=== PATIENT | male | born 1970 | race Caucasian/White ===

== ENCOUNTER 2021-10-15 07:37 | Outpatient (CLI) | payer OTHER, SELFPAY ==
--- NOTE | 2021-10-23 12:34 | WPDHOMESLEEP ---
Sleep Study - Home Unattended Date of Study: 10/15/21 Ordering Provider: Uma Sanchez DO Interpreting Provider: Uma Sanchez DO Home Sleep Study Type: Watch PAT Height: 1.85 m Weight: 136.985 kg Body Mass Index: 39.8 Neck Circumference (inches): 19 [place]: 12 Reason for Sleep Study Unrefreshing sleep and daytime sleepiness Sleep History The patient is a 50-year-old male with hypertension and GERD that had a home sleep test ordered for evaluation of sleep apnea. The patient rarely awakens from sleep short of breath. He occasionally awakens at night with heartburn, belching or cough. He frequently snores loud enough that others complain. He rarely has trouble sleeping poorly has a cold. He denies waking up gasping for air throughout the night. He denies having breathing problems at night observed by himself or others. He occasionally sweats excessively at night. He denies heart palpitations or irregular heartbeats during the night. He frequently falls asleep during the day but never while driving. He denies sleep paralysis and cataplexy. He occasionally has trouble at work due to sleepiness. He occasionally has vivid dreamlike scenes upon awakening or falling asleep. He denies feeling afraid of going to sleep. He denies having nightmares. Rarely remembers his dreams. He denies having thoughts racing through his mind. He rarely feels sad, depressed or anxious. He denies having muscular tension. He rarely notices parts of his body jerk. He denies kicking during the night. He denies having crawling and aching feelings in his legs as well as leg pain during the night. He rarely grinds his teeth during sleep but never awakens with a morning type pain. He denies being bothered by pain during the day but occasionally is awakened by pain during the night. He occasionally wakes up feeling stiff in the morning with sore or achy muscles. He occasionally wakes up with pain in the neck, spine or other joints. He goes to bed at 10:00 p.m. on weekdays and 11:00 p.m. on weekends. He is able to fall asleep relatively quickly. He wakes up 3-4 times throughout the night for unknown reasons. It takes him 20 minutes to fall back asleep. He wakes up at 6:00 a.m. on weekdays and 7:00 a.m. on the weekends. He typically gets 6-7 hours of sleep per night. He will stay in bed for 15 minutes after waking up in the morning. He currently lives with his . He does not consume any caffeinated beverages within 2 hours of bedtime. He is not engage in physical exercise before bedtime. He will watch television before falling asleep. He does not take naps in the afternoon or the evening. He drinks 4-5 caffeinated beverages per day. He denies tobacco, alcohol and recreational drug use. [facility] Past Medical History Medical History Bone spur of ankle Hypertension Joint pain Mild acid reflux Trigeminal neuralgia Surgical History Surgical History H/O elbow surgery Right tennis elbow surgery 08/2015 H/O knee surgery Right ACL 2018 History of ankle surgery Family History Family History Grandparent Family history of transient ischemic attacks Diabetes mellitus Father Hypertension Heart disease BPH (benign prostatic hyperplasia) Social History Social History Smoking status: Never smoker Alcohol intake: never Substance use: never Medications Home Medications Medication Instructions Recorded Confirmed Type ibuprofen 400 mg tablet 400 mg PO Q4-6H tablet 05/19/19 09/23/21 History omeprazole 20 mg capsule,delayed 20 mg PO DAILY PRN 05/19/19 09/23/21 History release losartan 50 mg tablet 50 mg PO DAILY #90 tablet 09/19/21 09/23/21 Rx Sleep Procedure The sleep study was com
[2021-10-23 12:52] VITALS: BMI 39.8
== END 2021-10-16 11:32 | disposition home or self-care (01) ==
LOC: ANHCSM 07:38
PROVIDERS: PCP Internal Medicine; Visit Provider Family Medicine
DX: G47.33 Obstructive sleep apnea (adult) (pediatric) (principal)
CPT/HCPCS: 95800

== ENCOUNTER 2021-11-07 08:07 | Outpatient (CLI) | payer OTHER, SELFPAY ==
--- NOTE | 2021-11-12 19:40 | WPDSLEEPSTUD ---
Sleep Study Date of Study: 11/07/21 Ordering Provider: Uma Sanchez DO Interpreting Physician: Madeleine Lopez MD Sleep Study Type: CPAP Titration Height: 1.83 m Weight: 137.346 kg Body Mass Index: 41.1 Neck Circumference (inches): 20 [place]: 12 Reason for Sleep Study 10/15/2021 Home sleep test with an overall AHI of 12.1 with desaturation down to 79%. The patient had 18 central apneas resulting in a central apnea index of 2.6. He presents for a CPAP titration. Sleep History Rajiv Kimball is a 50 year old man with hypertension and GERD who had a home sleep test for hypersomnolence. He rarely awakens from sleep short of breath. He occasionally awakens at night with heartburn, belching or coughing. He frequently snores loudly enough that others complain. He rarely has trouble sleeping with has a cold. He denies waking up gasping for air throughout the night. He denies having breathing problems at night observed by himself or others. He occasionally sweats excessively at night. He denies heart palpitations or irregular heartbeats during the night. He frequently falls asleep during the day but never while driving. He denies sleep paralysis and cataplexy. He occasionally has trouble at work due to sleepiness. He occasionally has vivid dreamlike scenes upon awakening or falling asleep. He denies feeling afraid of going to sleep. He denies having nightmares. Rarely remembers his dreams. He denies having thoughts racing through his mind. He rarely feels sad, depressed or anxious. He denies having muscular tension. He rarely notices parts of his body jerk. He denies kicking during the night. He denies having crawling and aching feelings in his legs as well as leg pain during the night. He rarely grinds his teeth during sleep but never awakens with a morning type pain. He denies being bothered by pain during the day but occasionally is awakened by pain during the night. He occasionally wakes up feeling stiff in the morning with sore or achy muscles. He occasionally wakes up with pain in the neck, spine or other joints. He goes to bed at 10:00 p.m. on weekdays and 11:00 p.m. on weekends. He is able to fall asleep relatively quickly. He wakes up 3-4 times throughout the night for unknown reasons. It takes him 20 minutes to fall back asleep. He wakes up at 6:00 a.m. on weekdays and 7:00 a.m. on the weekends. He typically gets 6-7 hours of sleep per night. He will stay in bed for 15 minutes after waking up in the morning. He currently lives with his . He does not take naps in the afternoon or the evening. Habits: He drinks 4-5 caffeinated beverages per day. He denies tobacco, alcohol and recreational drug use. [facility] Past Medical History Medical History (Updated 11/12/21 @ 19:45 by Madeleine Lopez MD) Bone spur of ankle Hypertension Joint pain Mild acid reflux DANII (obstructive sleep apnea) Trigeminal neuralgia Surgical History Surgical History H/O elbow surgery Right tennis elbow surgery 08/2015 H/O knee surgery Right ACL 2018 History of ankle surgery Family History Family History Grandparent Family history of transient ischemic attacks Diabetes mellitus Father Hypertension Heart disease BPH (benign prostatic hyperplasia) Social History Social History Smoking status: Never smoker Alcohol intake: never Substance use: never Medications Home Medications Medication Instructions Recorded Confirmed Type ibuprofen 400 mg tablet 400 mg PO Q4-6H tablet 05/19/19 10/28/21 History omeprazole 20 mg capsule,delayed 20 mg PO DAILY PRN 05/19/19 10/28/21 History release fenofibrate nanocrystallized 145 145 mg PO DAILY #90 tablet 10/28/21 10/28/21 Rx mg tablet losartan 100 mg tablet 100 mg PO DAILY #90 tablet 10/28
[2021-11-12 20:07] VITALS: BMI 41.1
== END 2021-11-08 07:03 | disposition home or self-care (01) ==
LOC: ANHCSM 08:08
PROVIDERS: PCP Internal Medicine; Visit Provider Family Medicine
DX: G47.33 Obstructive sleep apnea (adult) (pediatric) (principal)
CPT/HCPCS: 95811

== ENCOUNTER → 2022-11-07 08:37 | Outpatient (CLI) | payer OTHER, SELFPAY ==
--- NOTE | ~2022-11-07 | XR_ITS ---
Lumbosacral Spine: AP and lateral views Clinical History: Pain COMPARISON: 08/12/2017 Findings: The normal lordotic curve is maintained. No fracture or subluxation evident. Extensive ante rior osteophytes are present. There is mild facet arthropathy from L3 through S1. The sacroiliac join ts are normally outlined. Impression: Mild degenerative spondylosis, as above. Reviewed, dictated and finalized at location M. Impression: Mild degenerative spondylosis, as above.
== END ==
PROVIDERS: PCP Internal Medicine; Visit Provider Nurse Practitioner
DX: M54.50 Low back pain, unspecified (principal)
CPT/HCPCS: 72100

== ENCOUNTER 2023-03-08 17:45 | Emergency (ER) | payer OTHER, SELFPAY ==
--- NOTE | ~2023-03-08 | XR_ITS ---
Left wrist Technique: PA, oblique, lateral, and ulnar deviation views were obtained. Clinical History: Puncture injury Findings: No acute fracture or dislocation is seen. Osseous alignment is anatomic. Joint spaces are p reserved. Soft tissues are unremarkable. Impression: Unremarkable left wrist radiographs. Reviewed, dictated and finalized at location . Impression: Unremarkable left wrist radiographs.
[2023-03-08 17:51] VITALS: BP 144/84; PULSE 82; RESP 16; TEMP 36.8; O2SAT 97
--- NOTE | 2023-03-08 18:05 | ED.UPPEXIN ---
HPI - Extremity Injury (Upper) General Chief Complaint: Extremity Injury, Upper Stated Complaint: Puncture Wound/Left Wrist History of Present Illness HPI narrative: patient presents with puncture wound to left wrist. patient states he was using a drill at home and his hand slipped causing the drill bit to go into his wrist. Patient states he pulled the bit out but is unsure of whether or not he got all of the drill bit out of his wrist. patient is not up to date on tetanus no bleeding present no numbness or tingling. Related Data Home Medications Medication Instructions Recorded Confirmed meloxicam 15 mg tablet 15 mg PO DAILY 12/24/22 03/08/23 Allergies Allergy/AdvReac Type Severity Reaction Status Date / Time No Known Drug Allergies Allergy Unknown Verified 03/08/23 17:54 Review of Systems Review of Systems: CONSTITUTIONAL: Denies fever, chills, or sweats. EYES: Denies visual changes, redness, or discharge. ENT: Denies rhinorrhea, congestion, sore throat, or otalgia. CARDIOVASCULAR: Denies chest pain, palpitations, or edema. RESPIRATORY: Denies cough or dyspnea. GASTROINTESTINAL: Denies abdominal pain, nausea, vomiting, or diarrhea. GENITOURINARY: Denies dysuria or hematuria. SKIN: Denies rash or itching. MUSCULOSKELETAL: Denies back pain, joint pain, or myalgia. NEUROLOGIC: Denies headache, numbness, or weakness. PSYCHIATRIC: Denies anxiety or depression. [facility] Past Medical History Medical History Bone spur of ankle Hypertension Joint pain Mild acid reflux DANII (obstructive sleep apnea) Trigeminal neuralgia Surgical History Surgical History H/O elbow surgery Right tennis elbow surgery 08/2015 H/O knee surgery Right ACL 2018 History of ankle surgery Family History Family History Grandparent Family history of transient ischemic attacks Diabetes mellitus Father Hypertension Heart disease BPH (benign prostatic hyperplasia) Social History Social History Smoking status: Never smoker Alcohol intake: never Substance use: never Lack of Transportation: No Lack of Food: Never True Current Housing: I Have Housing Concerned About Future Housing: No Difficulty Paying Gas/Electric Bills: No Difficulty Paying for Meds: No Currently Unemployed: No Education: Bachelor's Degree Difficulty w/ Childcare or Family Care: No Comments At time of signature, agree with nursing past medical, surgical, social and family history. There is no relevant family history pertinent to the presenting complaint Exam Narrative: GENERAL: Well-appearing, well-nourished, and in no acute distress. HEAD: Normocephalic, atraumatic. EYES: PERRLA and EOMI. ENT: Nares clear, no rhinorrhea or epistaxis. Mucous membranes moist. NECK: Supple. CHEST: Clear to auscultation. No respiratory distress. HEART: Regular rate and rhythm. No murmur heard. Normal peripheral pulses. ABDOMEN: Soft, nontender, nondistended, normal active bowel sounds. EXTREMITIES: Normal range of motion. No edema. HAND EXAM - Skin intact,puncture wound to base of rleft thumb, no laceration, no swelling, no erythema, normal digit cascade with flexion of fingers, median nerve, ulnar nerve, radial nerve is intact. Normal sensation of each side of each finger, can perform `ok? sign, `cross over finger test of index and middle fingers? and `thumbs up? sign, normal thumb opposition, no scissoring. good capillary refill and radial pulse. normal flexion and extension of fingers and wrist. normal supination at wrist. Normal forearm and elbow exam. SKIN: Warm, dry, no rash. NEURO: No focal deficits. Alert and oriented x3. [place] Coma Scale Eye Opening: Spontaneous 4 [place] Coma Scale Motor: Obeys Commands 6 [place] Coma Scale V
[2023-03-08] MEDS: TETANUS,DIPHTHERIA,AC PERTUSSIS ADULT (0.5 ML) BOOSTRIX IM (18:22)
== END 2023-03-08 18:43 | disposition home or self-care (01) ==
PROVIDERS: Emergency Provider Nurse Practitioner Family; PCP Internal Medicine
DX: S61.532A Puncture wound without foreign body of left wrist, initial encounter (principal); W29.8XXA Contact with other powered hand tools and household machinery, initial encounter; Z23 Encounter for immunization; I10 Essential (primary) hypertension; K21.9 Gastro-esophageal reflux disease without esophagitis
CPT/HCPCS: 73110; 90471; 90715; 99213; G0463

== ENCOUNTER 2023-04-07 08:02 | Emergency (ER) | payer OTHER, SELFPAY ==
--- NOTE | 2023-04-07 08:13 | ED.GENADULT ---
HPI - General Adult General Chief complaint: Wound/Laceration Stated complaint: PUNCTURE WOUND TO L WRIST Time Seen by Provider: 04/07/23 08:14 Source: patient, RN notes reviewed and old records reviewed Mode of arrival: ambulatory Limitations: no limitations History of Present Illness HPI narrative: 52-year-old male presents to the [facility] concerned of a puncture wound that occurred 1 month ago to the left wrist. States that he had a puncture wound with a screw 1 month ago. Did seek treatment at time, no neuro deficits noted. Was started on Bactrim. Has not followed up with his primary care provider. States he has been to other urgent cares was told to go the ER. Came here today for treatment. Full range of motion of the fingers. Sensation intact. Capillary refill under 2 seconds. Wound noted to the volar aspect right over the radial wrist. Patient reports there has been purulent drainage from the area Onset (ago): month(s) (1) Treatments prior to arrival: other (Antibiotics, salves) Related Data Home Medications Medication Instructions Recorded Confirmed meloxicam 15 mg tablet 15 mg PO DAILY 12/24/22 04/07/23 Allergies Allergy/AdvReac Type Severity Reaction Status Date / Time No Known Drug Allergies Allergy Unknown Verified 04/07/23 08:22 Review of Systems Review of Systems: All systems reviewed & are unremarkable except as noted in HPI and below Constitutional: Constitutional: Reports no additional constitutional complaints Eyes: Eyes: Reports no additional eye complaints ENT: Reports system reviewed and no additional complaints, except as documented Cardiovascular: Cardiovascular: Reports no additional cardiovascular complaints, Denies chest pain and Denies dyspnea Respiratory: Respiratory: Reports no additional respiratory complaints, Denies chest congestion, Denies cough and Denies dyspnea Gastrointestinal: Gastrointestinal: Reports no additional gastrointestinal complaints, Denies abdominal pain, Denies nausea and Denies vomiting Musculoskeletal: Musculoskeletal: Reports as per HPI Integumentary/Breasts: Skin/Breast: Reports as per HPI, Reports skin swelling and Reports other (Nonhealing wound) Neurologic: Reports system reviewed and no additional complaints, except as documented Psychiatric: Psychiatric: Reports no additional psychiatric complaints Allergic/Immunologic: Allergic/Immunologic: Reports no additional allergic/immunologic complaints PMFSH Past Medical History Medical History Bone spur of ankle Hypertension Joint pain Mild acid reflux DANII (obstructive sleep apnea) Trigeminal neuralgia Surgical History Surgical History H/O elbow surgery Right tennis elbow surgery 08/2015 H/O knee surgery Right ACL 2018 History of ankle surgery Family History Family History Grandparent Family history of transient ischemic attacks Diabetes mellitus Father Hypertension Heart disease BPH (benign prostatic hyperplasia) Social History Social History Smoking status: Never smoker Alcohol intake: never Substance use: never Lack of Transportation: No Lack of Food: Never True Current Housing: I Have Housing Concerned About Future Housing: No Difficulty Paying Gas/Electric Bills: No Difficulty Paying for Meds: No Currently Unemployed: No Education: Bachelor's Degree Difficulty w/ Childcare or Family Care: No Comments At the time of my signature, I reviewed and agree with the nursing past medical, surgical, social, and family history. There is no relevant family history pertinent to the patient complaint. Exam Const: General: cooperative, healthy appearing, comfortable, no acute distress, well developed, alert and well nourished Nutritional
[2023-04-07 08:16] VITALS: BP 144/82; PULSE 76; RESP 16; TEMP 36.4; O2SAT 97
== END 2023-04-07 08:27 | disposition short-term general hospital (02) ==
PROVIDERS: Emergency Provider Nurse Practitioner; PCP Nurse Practitioner
DX: S61.532A Puncture wound without foreign body of left wrist, initial encounter (principal); L08.9 Local infection of the skin and subcutaneous tissue, unspecified; W45.0XXA Nail entering through skin, initial encounter; I10 Essential (primary) hypertension
CPT/HCPCS: 99212; G0463

== ENCOUNTER 2023-04-07 08:45 | Emergency (ER) | payer OTHER, SELFPAY ==
--- NOTE | ~2023-04-07 | XR_ITS ---
Left wrist Technique: PA, oblique, lateral, and ulnar deviation views were obtained. Clinical History: Puncture wound Findings: No acute fracture or dislocation is seen. Osseous alignment is anatomic. Joint spaces are p reserved. Soft tissues are unremarkable. Impression: Unremarkable left wrist radiographs. Reviewed, dictated and finalized at location . Impression: Unremarkable left wrist radiographs.
[2023-04-07 08:59] VITALS: BP 166/95; PULSE 69; RESP 16; TEMP 36.6; O2SAT 98
--- NOTE | 2023-04-07 09:28 | ED.WOUNDLAC ---
HPI - Wound/Laceration General Chief Complaint: Wound/Laceration <TOMA Rae Last Filed: 04/07/23 16:36> Stated Complaint: wrist wound <TOMA Rae Last Filed: 04/07/23 16:36> Time Seen by Provider: 04/07/23 08:59 <TOMA Rae Last Filed: 04/07/23 16:36> Source: patient and old records reviewed <TOMA Rae Last Filed: 04/07/23 16:36> Mode of arrival: ambulatory <TOMA Rae Last Filed: 04/07/23 16:36> Limitations: no limitations <TOMA Rae Filed: 04/07/23 16:36> History of Present Illness HPI narrative: Patient is a 52 y/o male who presents to the ED with c/o L wrist wound. Patient reports that he sustained a puncture wound from a screw to his left volar wrist around 1 month ago. He was seen in urgent care at that time and had negative x-rays for foreign bodies. He was prescribed a 7-day course of Bactrim at that time. Patient states the wound intermittently improved and worsened over the last month. Over the last 1 week, patient reports increased redness, serous drainage, intermittent discomfort. He has been using antibiotic ointment without improvement. He was unable to get into his primary care doctor, so he prompted here. He denies any fevers or chills. Denies numbness or tingling. Denies nausea or vomiting. <TOMA Rae Last Filed: 04/07/23 16:36> Related Data Home Medications: Home Medications Medication Instructions Recorded Confirmed meloxicam 15 mg tablet 15 mg PO DAILY 12/24/22 04/07/23 <TOMA Rae Last Filed: 04/07/23 16:36> Allergies/Adverse Reactions: Allergies Allergy/AdvReac Type Severity Reaction Status Date / Time No Known Drug Allergies Allergy Unknown Verified 04/07/23 08:22 <SNEHA RaeC - Last Filed: 04/07/23 16:36> Review of Systems Review of Systems: CONSTITUTIONAL: Denies fever, chills, or sweats. CARDIOVASCULAR: Denies chest pain. RESPIRATORY: Denies dyspnea. GASTROINTESTINAL: Denies nausea, vomiting. SKIN: See HPI. MUSCULOSKELETAL: See HPI. NEUROLOGIC: Denies tingling, numbness, or weakness. <Lelia Dominguez PA-C - Last Filed: 04/07/23 16:36> All systems reviewed & are unremarkable except as noted in HPI and below <Lelia Dominguez PA-C - Last Filed: 04/07/23 16:36> [facility] Past Medical History Medical History: Medical History Bone spur of ankle Hypertension Joint pain Mild acid reflux DANII (obstructive sleep apnea) Trigeminal neuralgia <Lelia Dominguez PA-C - Last Filed: 04/07/23 16:36> Surgical History Surgical History: Surgical History H/O elbow surgery Right tennis elbow surgery 08/2015 H/O knee surgery Right ACL 2018 History of ankle surgery <Lelia Dominguez PA-C - Last Filed: 04/07/23 16:36> Family History Family History: Family History Grandparent Family history of transient ischemic attacks Diabetes mellitus Father Hypertension Heart disease BPH (benign prostatic hyperplasia) <Lelia Dominguez PA-C - Last Filed: 04/07/23 16:36> Social History Social History: Social History Smoking status: Never smoker Alcohol intake: never Substance use: never Lack of Transportation: No Lack of Food: Never True Current Housing: I Have Housing Concerned About Future Housing: No Difficulty Paying Gas/Electric Bills: No Difficulty Paying for Meds: No Currently Unemployed: No Education: Bachelor's Degree Difficulty w/ Childcare or Family Care: No <Lelia Dominguez PA-C - Last Filed: 04/07/23 16:36> Exam Narrative: GENERAL: Well
[2023-04-07 10:00] LABS: Basophils Absolute Auto 0.1 K/mm3 (0.0-0.1); Eosinophils Absolute Auto 0.2 K/mm3 (0-0.3); Eosinophils Percent Auto 3.4 % (0-4.4); Hematocrit 43.3 % (42.0-52.0); Immature Granulocyte Absolute 0.03 K/mm3 (0.00-0.031); Immature Granulocyte Percent A 0.5 % (0-0.5); Lymphocytes Absolute Auto 1.27 K/mm3 (0.9-3.2); Lymphocytes Percent Auto 20.6 % (18.3-44.2); Mean Corpuscular HGB Conc 34.6 g/dl (32-36); Mean Corpuscular Hemoglobin 30.6 pg (26-34); Mean Corpuscular Volume 88.4 fl (80-100); Mean Platelet Volume 9.4 fl (7.4-10.4); Monocytes Absolute Auto 0.5 K/mm3 (0.1-0.6); Monocytes Percent Auto 8.6 % (2.6-8.5); Neutrophils Absolute Auto 4.1 K/mm3 (1.3-6.7); Neutrophils Percent Auto 65.9 % (45.5-73.1); Platelet Count Result 192 k/mm3 (150-375); White Blood Count 6.2 K/mm3 (4.5-10.0)
[2023-04-07 10:11] LABS: CRP < 0.5 mg/dL (<1.0)
== END 2023-04-07 10:53 | disposition home or self-care (01) ==
PROVIDERS: Emergency Provider Physician Assistant; PCP Nurse Practitioner
DX: S61.532A Puncture wound without foreign body of left wrist, initial encounter (principal); L24.9 Irritant contact dermatitis, unspecified cause; I10 Essential (primary) hypertension; K21.9 Gastro-esophageal reflux disease without esophagitis; G47.33 Obstructive sleep apnea (adult) (pediatric); W27.0XXA Contact with workbench tool, initial encounter
CPT/HCPCS: 36415; 73110; 85025; 86140; 99283

== ENCOUNTER 2024-03-06 15:46 | Emergency (ER) | payer OTHER, SELFPAY ==
--- NOTE | 2024-03-06 15:47 | ECG_ITS ---
Test Date: 2024-03-06 15:52:54 Measurements Intervals [place] Rate: 77 P: 42 MS: 186 QRS: 30 QRSD: 103 T: 22 QT: 364 QTc: 414 Interpretive Statements SINUS RHYTHM DELAYED PRECORDIAL R/S TRANSITION BORDERLINE ECG No previous ECG available for comparison Electronically Signed On 03-06-2024 20:08:07 CDT by aMtt Langley D.O.
[2024-03-06 16:06] VITALS: BP 170/82; PULSE 82; RESP 16; TEMP 36.3; O2SAT 96
[2024-03-06 18:44] VITALS: BP 128/72; PULSE 69; RESP 18; TEMP 36.7; O2SAT 97
[2024-03-06 19:01] VITALS: BP 129/66; PULSE 67; RESP 34; O2SAT 97
[2024-03-06 19:03] VITALS: RESP 19; O2SAT 99
[2024-03-06 19:16] VITALS: BP 118/66; PULSE 70; RESP 20; O2SAT 97
[2024-03-06 19:31] VITALS: BP 125/68; PULSE 68; RESP 13; O2SAT 98
--- NOTE | 2024-03-06 19:51 | ED.GENADULT ---
HPI - General Adult General Chief complaint: Recheck/Abnormal Lab/Rx Stated complaint: HTN Time Seen by Provider: 03/06/24 18:54 History of Present Illness HPI narrative: This is a 53-year-old male presenting with complaints of hypertension. Patient has recently been treated for chronic hypertension. He has been taking his blood pressures multiple times per day. Today was elevated at 173/102. He was then told to go to the emergency room for evaluation. Patient is currently asymptomatic. Blood pressure returned to normal in the ED. patient felt anxious and jittery when he had the elevated blood pressures Related Data Allergies Allergy/AdvReac Type Severity Reaction Status Date / Time No Known Drug Allergies Allergy Unknown Verified 03/06/24 19:05 [facility] Past Medical History Medical History Bone spur of ankle Chronic eustachian tube dysfunction Chronic seasonal allergic rhinitis Hypertension Joint pain Mild acid reflux DANII (obstructive sleep apnea) Otitis externa, acute eczematoid Right ankle sprain Trigeminal neuralgia Surgical History Surgical History H/O elbow surgery Right tennis elbow surgery 08/2015 H/O knee surgery Right ACL 2018 History of ankle surgery Family History Family History Grandparent Family history of transient ischemic attacks Diabetes mellitus Father Hypertension Heart disease BPH (benign prostatic hyperplasia) Social History Social History Smoking status: Never smoker Alcohol intake: never Substance use: never Substance use type: does not use Lack of Transportation: No Lack of Food: Never True Current Housing: I Have Housing Concerned About Future Housing: No Difficulty Paying Gas/Electric Bills: No Difficulty Paying for Meds: No Currently Unemployed: No Education: Bachelor's Degree Difficulty w/ Childcare or Family Care: No Living arrangements: with family Spiritual care concerns: No Exam Narrative: APPEARANCE: No apparent distress. Head: atraumatic. EYES: EOMI, NOSE: Atraumatic NECK: Trachea midline RESPIRATORY: No increased rate of breathing CTAB CARDIOVASCULAR: RRR peripheral edema ABDOMINAL: Non-distended Soft nontender MUSCULOSKELETAl: No obvious deformities NEURO: Alert. Cranial nerves 2-12 grossly intact. Sensation light touch, motor function cerebellar function intact for 4 extremities. Gait exam was normal. SKIN:: Warm, dry. Normal color PSYCHIATRIC: Normal affect Course Vital Signs Vital signs: Vital Signs Temperature 97.4 F L 03/06/24 16:06 Pulse Rate 82 03/06/24 16:06 Respiratory Rate 16 03/06/24 16:06 Blood Pressure 170/82 H 03/06/24 16:06 Pulse Oximetry 96 03/06/24 16:06 Temperature 98.0 F 03/06/24 18:44 Pulse Rate 69 03/06/24 18:44 Respiratory Rate 19 03/06/24 19:03 Blood Pressure 128/72 03/06/24 18:44 Pulse Oximetry 99 03/06/24 19:03 Medical Decision Making MDM Narrative Medical decision making narrative: -Course: 53-year-old male presenting asymptomatic hypertension. Blood pressure returned to normal in the ED. Patient educated point to the emergency for hypertension. Patient should follow-up primary care physician Vital Signs Vital Signs: Vital Signs Temperature 97.4 F L 03/06/24 16:06 Pulse Rate 82 03/06/24 16:06 Respiratory Rate 16 03/06/24 16:06 Blood Pressure 170/82 H 03/06/24 16:06 Pulse Oximetry 96 03/06/24 16:06 Temperature 98.0 F 03/06/24 18:44 Pulse Rate 69 03/06/24 18:44 Respiratory Rate 19 03/06/24 19:03 Blood Pressure 128/72 03/06/24 18:44 Pulse Oximetry 99 03/06/24 19:03 Discharge Plan Discharge Clinical Impression: Asymptomatic hypertension Patient Disposit
== END 2024-03-06 20:01 | disposition home or self-care (01) ==
PROVIDERS: Emergency Provider Emergency Medicine; PCP Internal Medicine
DX: I10 Essential (primary) hypertension (principal); G47.30 Sleep apnea, unspecified
CPT/HCPCS: 93005; 99283

== ENCOUNTER 2025-05-22 00:13 | Day surgery (SDC) | payer OTHER, SELFPAY ==
--- OUTSIDE RECORDS SUMMARY | 2010-05-20 10:00 | XMS_ITS | Continuity of Care Document ---
Author Organization [facility] Address [address] [place] [address] Phone Care Team Providers Care Retail Administrative Assistant Name Role Phone [facility] Unavailable Unavailable Procedures Procedure Date MRI lwr extrm joint, w/o contrast Office/outpatient visit,[facility] 2009 X-ray exam of knee, 3 views Advance Directives Directive Yes / No Effective Date File Name No Information Encounters Encounter Description Practice Location Reason(s) For Visit Diagnoses Date Provider Providers Copied on Encounter [facility], [address], [id number], tel:[phone] [facility] CHONDROMALACIA PATELLAEJOINT EFFUSION-L/LEG 0 [facility]. [address] [place] [address], [address], [place], [place], [id number], . tel:[phone] Office/outpa tient visit,[facility], [address] [place] [address], [id number], tel:[phone] [facility] JOINT PAIN-L/LEG 0 No Information Family History Family Member Type Diagnosis Age At Onset No Information Payers Payer name Insurance type Covered constitution party ID Authoriza titeddy(s) [facility] [id number] Social History Type Description Quantity Date Captured Comments Sex Male Smoking Status No Information Chief Complaint And Reason For Visit No Information Reason For Referral Reason For Referral No Information History Of Present Illness Encounter Date Complaint History Of Prese nt Illness No Information Functional Status Date Functional Assessmen t No Information Instructions Date Instruction Additional Infor mation No Information Assessments Type Assessment Date No Information Patient Care Teams Name Effective Dates (start - stop) Status Members No Information
--- OUTSIDE RECORDS SUMMARY | 2010-05-20 10:00 | XMS_ITS | Continuity of Care Document ---
Author Organization [facility] Address [address] [place] [address] Phone Care Team Providers Care Machining Technician Name Role Phone [facility] Unavailable Unavailable Procedures Procedure Date MRI lwr extrm joint, w/o contrast Office/outpatient visit,[facility] 2009 X-ray exam of knee, 3 views Advance Directives Directive Yes / No Effective Date File Name No Information Encounters Encounter Description Practice Location Reason(s) For Visit Diagnoses Date Provider Providers Copied on Encounter [facility], [address], [id number], tel:[phone] [facility] CHONDROMALACIA PATELLAEJOINT EFFUSION-L/LEG 0 [facility]. [address] [place] [address], [address], [place], [place], [id number], . tel:[phone] Office/outpa tient visit,[facility], [address] [place] [address], [id number], tel:[phone] [facility] JOINT PAIN-L/LEG 0 No Information Family History Family Member Type Diagnosis Age At Onset No Information Payers Payer name Insurance type Covered green party ID Authoriza titeddy(s) [facility] [id number] Social History Type Description Quantity Date Captured [...]
--- OUTSIDE RECORDS SUMMARY | 2010-05-20 10:00 | XMS_ITS | Continuity of Care Document ---
Author Organization [facility] Address [address] [place] [address] Phone Care Team Providers Care Front Tender Name Role Phone [facility] Unavailable Unavailable Procedures Procedure Date MRI lwr extrm joint, w/o contrast Office/outpatient visit,[facility] 2009 X-ray exam of knee, 3 views Advance Directives Directive Yes / No Effective Date File Name No Information Encounters Encounter Description Practice Location Reason(s) For Visit Diagnoses Date Provider Providers Copied on Encounter Orthopedic [facility], [address], [id number], tel:[phone] [facility] CHONDROMALACIA PATELLAEJOINT EFFUSION-L/LEG 0 [facility]. [address] [place] [address], [address], [place], [place], [id number], . tel:[phone] Office/outpa tient visit,[facility], [address] [place] [address], [id number], tel:[phone] [facility] JOINT PAIN-L/LEG 0 No Information Family History Family Member Type Diagnosis Age At Onset No Information Payers Payer name Insurance type Covered constitution party ID Authoriza titeddy(s) [facility] [id number] Social History Type Description Quantity Date Captured [...]
--- OUTSIDE RECORDS SUMMARY | 2010-05-20 10:00 | XMS_ITS | Continuity of Care Document ---
Author Organization [facility] Address [address] [place] [address] Phone Care Team Providers Care Director Pediatric Name Role Phone [facility] Unavailable Unavailable Procedures Procedure Date MRI lwr extrm joint, w/o contrast Office/outpatient visit,[facility] 2009 X-ray exam of knee, 3 views Advance Directives Directive Yes / No Effective Date File Name No Information Encounters Encounter Description Practice Location Reason(s) For Visit Diagnoses Date Provider Providers Copied on Encounter Orthopedic [facility], [address], [id number], tel:[phone] [facility] CHONDROMALACIA PATELLAEJOINT EFFUSION-L/LEG 0 [facility]. [address] [place] [address], [address], [place], [place], [id number], . tel:[phone] Office/outpa tient visit,[facility], [address] [place] [address], [id number], tel:[phone] [facility] JOINT PAIN-L/LEG 0 No Information Family History Family Member Type Diagnosis Age At Onset No Information Payers Payer name Insurance type Covered constitution party ID Authoriza titeddy(s) [facility] [id number] Social History Type Description Quantity Date Captured [...]
--- OUTSIDE RECORDS SUMMARY | 2010-05-20 10:00 | XMS_ITS | Continuity of Care Document ---
Author Organization [facility] Address [address] [place] [address] Phone Care Team Providers Care School Guard Name Role Phone [facility] Unavailable Unavailable Procedures Procedure Date MRI lwr extrm joint, w/o contrast Office/outpatient visit,[facility] 2009 X-ray exam of knee, 3 views Advance Directives Directive Yes / No Effective Date File Name No Information Encounters Encounter Description Practice Location Reason(s) For Visit Diagnoses Date Provider Providers Copied on Encounter Orthopedic [facility], [address], [id number], tel:[phone] [facility] CHONDROMALACIA PATELLAEJOINT EFFUSION-L/LEG 0 [facility]. [address] [place] [address], [address], [place], [place], [id number], . tel:[phone] Office/outpa tient visit,[facility], [address] [place] [address], [id number], tel:[phone] [facility] JOINT PAIN-L/LEG 0 No Information Family History Family Member Type Diagnosis Age At Onset No Information Payers Payer name Insurance type Covered democrat ID Authoriza titeddy(s) [facility] [id number] Social History Type Description Quantity Date Captured [...]
--- OUTSIDE RECORDS SUMMARY | 2010-05-20 10:00 | XMS_ITS | Continuity of Care Document ---
Author Organization [facility] Address [address] [place] [address] Phone Care Team Providers Care Binder Cutter Hand Name Role Phone [facility] Unavailable Unavailable Procedures Procedure Date MRI lwr extrm joint, w/o contrast Office/outpatient visit,[facility] 2009 X-ray exam of knee, 3 views Advance Directives Directive Yes / No Effective Date File Name No Information Encounters Encounter Description Practice Location Reason(s) For Visit Diagnoses Date Provider Providers Copied on Encounter Orthopedic [facility], [address], [id number], tel:[phone] [facility] CHONDROMALACIA PATELLAEJOINT EFFUSION-L/LEG 0 [facility]. [address] [place] [address], [address], [place], [place], [id number], . tel:[phone] Office/outpa tient visit,[facility], [address] [place] [address], [id number], tel:[phone] [facility] JOINT PAIN-L/LEG 0 No Information Family History Family Member Type Diagnosis Age At Onset No Information Payers Payer name Insurance type Covered alliance party ID Authoriza titeddy(s) [facility] [id number] Social History Type Description Quantity Date Captured [...]
--- OUTSIDE RECORDS SUMMARY | 2010-05-20 10:00 | XMS_ITS | Continuity of Care Document ---
Author Organization [facility] Address [address] [place] [address] Phone Care Team Providers Care Support Team Assoc Name Role Phone [facility] Unavailable Unavailable Procedures Procedure Date MRI lwr extrm joint, w/o contrast Office/outpatient visit,[facility] 2009 X-ray exam of knee, 3 views Advance Directives Directive Yes / No Effective Date File Name No Information Encounters Encounter Description Practice Location Reason(s) For Visit Diagnoses Date Provider Providers Copied on Encounter Orthopedic [facility], [address], [id number], tel:[phone] [facility] CHONDROMALACIA PATELLAEJOINT EFFUSION-L/LEG 0 [facility]. [address] [place] [address], [address], [place], [place], [id number], . tel:[phone] Office/outpa tient visit,[facility], [address] [place] [address], [id number], tel:[phone] [facility] JOINT PAIN-L/LEG 0 No Information Family History Family Member Type Diagnosis Age At Onset No Information Payers Payer name Insurance type Covered green party ID Authoriza titeddy(s) [facility] [id number] Social History Type Description Quantity Date Captured [...]
--- OUTSIDE RECORDS SUMMARY | 2010-05-20 10:00 | XMS_ITS | Continuity of Care Document ---
Author Organization [facility] Address [address] [place] [address] Phone Care Team Providers Care Buffing Machine Operator Name Role Phone [facility] Unavailable Unavailable Procedures Procedure Date MRI lwr extrm joint, w/o contrast Office/outpatient visit,[facility] 2009 X-ray exam of knee, 3 views Advance Directives Directive Yes / No Effective Date File Name No Information Encounters Encounter Description Practice Location Reason(s) For Visit Diagnoses Date Provider Providers Copied on Encounter Orthopedic [facility], [address], [id number], tel:[phone] [facility] CHONDROMALACIA PATELLAEJOINT EFFUSION-L/LEG 0 [facility]. [address] [place] [address], [address], [place], [place], [id number], . tel:[phone] Office/outpa tient visit,[facility], [address] [place] [address], [id number], tel:[phone] [facility] JOINT PAIN-L/LEG 0 No Information Family History Family Member Type Diagnosis Age At Onset No Information Payers Payer name Insurance type Covered green party ID Authoriza titeddy(s) [facility] [id number] Social History Type Description Quantity Date Captured [...]
--- OUTSIDE RECORDS SUMMARY | 2010-05-20 10:00 | XMS_ITS | Continuity of Care Document ---
Author Organization [facility] Address [address] [place] [address] Phone Care Team Providers Care Neck Band Operator Name Role Phone [facility] Unavailable Unavailable Procedures Procedure Date MRI lwr extrm joint, w/o contrast Office/outpatient visit,[facility] 2009 X-ray exam of knee, 3 views Advance Directives Directive Yes / No Effective Date File Name No Information Encounters Encounter Description Practice Location Reason(s) For Visit Diagnoses Date Provider Providers Copied on Encounter Orthopedic [facility], [address], [id number], tel:[phone] [facility] CHONDROMALACIA PATELLAEJOINT EFFUSION-L/LEG 0 [facility]. [address] [place] [address], [address], [place], [place], [id number], . tel:[phone] Office/outpa tient visit,[facility], [address] [place] [address], [id number], tel:[phone] [facility] JOINT PAIN-L/LEG 0 No Information Family History Family Member Type Diagnosis Age At Onset No Information Payers Payer name Insurance type Covered democrat ID Authoriza titeddy(s) [facility] [id number] Social History Type Description Quantity Date Captured [...]
--- OUTSIDE RECORDS SUMMARY | 2010-05-20 10:00 | XMS_ITS | Continuity of Care Document ---
Author Organization [facility] Address [address] [place] [address] Phone Care Team Providers Care Architecture Professor Name Role Phone [facility] Unavailable Unavailable Procedures Procedure Date MRI lwr extrm joint, w/o contrast Office/outpatient visit,[facility] 2009 X-ray exam of knee, 3 views Advance Directives Directive Yes / No Effective Date File Name No Information Encounters Encounter Description Practice Location Reason(s) For Visit Diagnoses Date Provider Providers Copied on Encounter Orthopedic [facility], [address], [id number], tel:[phone] [facility] CHONDROMALACIA PATELLAEJOINT EFFUSION-L/LEG 0 [facility]. [address] [place] [address], [address], [place], [place], [id number], . tel:[phone] Office/outpa tient visit,[facility], [address] [place] [address], [id number], tel:[phone] [facility] JOINT PAIN-L/LEG 0 No Information Family History Family Member Type Diagnosis Age At Onset No Information Payers Payer name Insurance type Covered democrat ID Authoriza titeddy(s) [facility] [id number] Social History Type Description Quantity Date Captured [...]
--- OUTSIDE RECORDS SUMMARY | 2010-05-20 10:00 | XMS_ITS | Continuity of Care Document ---
Author Organization [facility] Address [address] [place] [address] Phone Care Team Providers Care [place]ave [place] Hand Name Role Phone [facility] Unavailable Unavailable Procedures Procedure Date MRI lwr extrm joint, w/o contrast Office/outpatient visit,[facility] 2009 X-ray exam of knee, 3 views Advance Directives Directive Yes / No Effective Date File Name No Information Encounters Encounter Description Practice Location Reason(s) For Visit Diagnoses Date Provider Providers Copied on Encounter Orthopedic [facility], [address], [id number], tel:[phone] [facility] CHONDROMALACIA PATELLAEJOINT EFFUSION-L/LEG 0 [facility]. [address] [place] [address], [address], [place], [place], [id number], . tel:[phone] Office/outpa tient visit,[facility], [address] [place] [address], [id number], tel:[phone] [facility] JOINT PAIN-L/LEG 0 No Information Family History Family Member Type Diagnosis Age At Onset No Information Payers Payer name Insurance type Covered democrat ID Authoriza titeddy(s) [facility] [id number] Social History Type Description Quantity Date Captured [...]
--- OUTSIDE RECORDS SUMMARY | 2010-05-20 10:00 | XMS_ITS | Continuity of Care Document ---
Author Organization [facility] Address [address] [place] [address] Phone Care Team Providers Care Piano Technician Name Role Phone [facility] Unavailable Unavailable Procedures Procedure Date MRI lwr extrm joint, w/o contrast Office/outpatient visit,[facility] 2009 X-ray exam of knee, 3 views Advance Directives Directive Yes / No Effective Date File Name No Information Encounters Encounter Description Practice Location Reason(s) For Visit Diagnoses Date Provider Providers Copied on Encounter Orthopedic [facility], [address], [id number], tel:[phone] [facility] CHONDROMALACIA PATELLAEJOINT EFFUSION-L/LEG 0 [facility]. [address] [place] [address], [address], [place], [place], [id number], . tel:[phone] Office/outpa tient visit,[facility], [address] [place] [address], [id number], tel:[phone] [facility] JOINT PAIN-L/LEG 0 No Information Family History Family Member Type Diagnosis Age At Onset No Information Payers Payer name Insurance type Covered alliance party ID Authoriza titeddy(s) [facility] [id number] Social History Type Description Quantity Date Captured [...]
--- OUTSIDE RECORDS SUMMARY | 2010-05-20 10:00 | XMS_ITS | Continuity of Care Document ---
Author Organization [facility] Address [address] [facility] [address] [facility] [address] [place] [address] Phone Care Team Providers Care Suspect Artist Supervisor Name Role Phone [facility] Unavailable Unavailable Procedures Procedure Date MRI lwr extrm joint, w/o contrast Office/outpatient visit,[facility] 2009 X-ray exam of knee, 3 views Advance Directives Directive Yes / No Effective Date File Name No Information Encounters Encounter Description Practice Location Reason(s) For Visit Diagnoses Date Provider Providers Copied on Encounter Orthopedic [facility], [address], [id number], tel:[phone] [facility] CHONDROMALACIA PATELLAEJOINT EFFUSION-L/LEG 0 [facility]. [address] [place] [address], [address], [place], [place], [id number], . tel:[phone] Office/outpa tient visit,[facility], [address] [place] [address], [id number], tel:[phone] [facility] JOINT PAIN-L/LEG 0 No Information Family History Family Member Type Diagnosis Age At Onset No Information Payers Payer name Insurance type Covered alliance party ID Authoriza titeddy(s) [facility] [id number] Social History Type Description Quantity Date Captured [...]
--- OUTSIDE RECORDS SUMMARY | 2010-05-20 10:00 | XMS_ITS | Continuity of Care Document ---
Author Organization [facility] Address [address] [facility] [address] [address] [facility] [address] [place] [address] Phone Care Team Providers Care Med Peds Name Role Phone [facility] Unavailable Unavailable Procedures Procedure Date MRI lwr extrm joint, w/o contrast Office/outpatient visit,[facility] 2009 X-ray exam of knee, 3 views Advance Directives Directive Yes / No Effective Date File Name No Information Encounters Encounter Description Practice Location Reason(s) For Visit Diagnoses Date Provider Providers Copied on Encounter Orthopedic [facility], [address], [id number], tel:[phone] [facility] CHONDROMALACIA PATELLAEJOINT EFFUSION-L/LEG 0 [facility]. [address] [place] [address], [address], [place], [place], [id number], . tel:[phone] Office/outpa tient visit,[facility], [address] [place] [address], [id number], tel:[phone] [facility] JOINT PAIN-L/LEG 0 No Information Family History Family Member Type Diagnosis Age At Onset No Information Payers Payer name Insurance type Covered republican ID Authoriza titeddy(s) [facility] [id number] Social History Type Description Quantity Date Captured [...]
--- OUTSIDE RECORDS SUMMARY | 2015-10-17 12:23 | XMS_ITS | Continuity of Care Document ---
Author Organization [facility] Address [address] [facility] [address] [place] [address] Phone Care Team Providers Care Thermodynamics Teacher Name Role Phone Charles MS, OTR/L, CHT, Pamela Unavailable Unavailable Procedures Procedure Date Progress Note THERAPEUTIC EXERCISES NEUROMUSCULAR RE-ED MANUAL THERAPY FUNC ACTIVITY HOT/COLD PACK THERAPEUTIC EXERCISES NEUROMUSCULAR RE-ED MANUAL THERAPY FUNC ACTIVITY HOT/COLD PACK ELECTRIC STIMULATION UNATT THERAPEUTIC EXERCISES NEUROMUSCULAR RE-ED MANUAL THERAPY FUNC ACTIVITY HOT/COLD PACK THERAPEUTIC EXERCISES NEUROMUSCULAR RE-ED MANUAL THERAPY FUNC ACTIVITY HOT/COLD PACK THERAPEUTIC EXERCISES NEUROMUSCULAR RE-ED MANUAL THERAPY FUNC ACTIVITY HOT/COLD PACK ELECTRIC STIMULATION UNA THERAPEUTIC EXERCISES NEUROMUSCULAR RE-ED MANUAL THERAPY FUNC ACTIVITY HOT/COLD PACK ELECTRIC STIMULATION UNA THERAPEUTIC EXERCISES NEUROMUSCULAR RE-ED MANUAL THERAPY FUNC ACTIVITY ULTRASOUND THERAPY HOT/COLD PACK ELECTRIC STIMULATION UNATT THERAPEUTIC EXERCISES NEUROMUSCULAR RE-ED MANUAL THERAPY FUNC ACTIVITY HOT/COLD PACK ELECTRIC STIMULATION UNATT OT EVALUATION THERAPEUTIC EXERCISES NEUROMUSCULAR RE-ED FUNC ACTIVITY HOT/COLD PACK ELECTRIC STIMULATION UNATT Advance Directives Directive Yes / No Effective Date File Name No Information Encounters Encounter Description Practice Location Reason(s) For Visit Diagnoses Date Provider Providers Copied on Encounter [facility] [address] [place] [address], [id number], tel:[phone] [place] No Information Apr-1 3-201 6 Charles Santiago. [address] [place] [address], [address], [place], [facility], . tel:[phone], [place], [id number], tel:[phone] [place] No Information Apr-0 8-201 6 Charles Santiago. [address] [place] [address], [address], [place], [place], [facility], . tel:[phone] Referring Provider: Dionicio Virgen Jr, [address], [place], [address]. tel:[phone] [address], [place], [id number], tel:[phone] [place] No Information Apr-0 6-201 6 Charles Santiago. [address] [facility], [address], [place], [place], [facility], [place]. tel:[phone] Referring Provider: Dionicio Virgen Jr, [address], [place], [address]. tel:[phone] [facility] [address] [place], [place] [address], [place], [place], [id number], tel:[phone] [place] No Information Apr-0 1-201 6 Hauschild Pamela. [address] [place] [address], [address], [place], [facility], . tel:[phone] Referring Provider: Dionicio Virgen Jr, [address], [place], [address]. tel:[phone] [address], [place], [place], [id number], tel:[phone] [place] No Information Mar-3 0-201 6 Vincentprabha Beaver. [address] [place] [address], [address], [place], [facility], [place]. tel:[phone] Referring Provider: Dionicio Virgen Jr, [address], [place], [address]. tel:[phone] [place] [address], [id number], tel:[phone] [place] No Information Mar-2 3-201 6 Hauschild Pamela. [address] [place] [address], [address], [place], [facility], [place]. tel:[phone] Referring Provider: Dionicio Virgen Jr, [address], [place], [address]. tel:[phone] [facility] [address] [place] [address] [address], [place], [place], [id number], [place] tel:[phone] [place] No Information Mar-1 8-201 6 Hauschild Pamela. [address] [place] [address], [address], [place], [address], [place]. tel:[phone] Referring Provider: Dionicio Virgen Jr, [address], [place], [address]. tel:[phone] [facility] [address], [id number], tel:[phone] [place] No Information Mar-1 1-201 6 Charles Santiago. [address] [place] [address], [address], [place], [facility], . tel:[phone] Referring Provider: Dionicio Virgen Jr, [address], [place], [address]. tel:[phone] [facility] [address], [id number], tel:[phone] [place] No Information Mar-0 9-201 6 Charles Santiago. [address] [place] [address], [address], [facility], . tel:[phone] Referring Provider: Dionicio Virgen Jr, [address], [place], [address]. tel:[phone] [facility], [address], [id number], tel:[phone] [place] Stiffness of right elbow, not elsewhere classifiedEffus ion, right elbowStiffness of right wrist, not elsewhere classifiedPain in right elbowMuscle weakness (generalized)La teral epicondylitis, right elbow Mar-0 4-201 6 Charles Santiago. [address] [place] [address], [address], [place], [facility], . tel:[phone] Referring Provider: Dionicio Virgen Jr, [address], [place], [address]. tel:[phone] Family History Family Member Type Diagnosis Age At Onset No Information Payers Payer name Insurance type Covered alliance party ID Authoriza tion(s) No Information Social History Type Description Quantity Date Captured [...]
--- OUTSIDE RECORDS SUMMARY | 2015-10-17 12:23 | XMS_ITS | Continuity of Care Document ---
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 [address] [place] [address], [address], [facility], . tel:[phone] [address], [place], [id number], tel:[phone] [place] No Information Apr-0 8-201 6 Charles Santiago. [address] [place] [address], [address], [place], [facility], . tel:[phone] Referring Provider: Dionicio Virgen Jr, [address], [place], [address]. tel:[phone] [address], [place], [address], tel:[phone] [place] No Information Apr-0 6-201 6 Charles Santiago. [address] [facility], [address], [place], [facility], [place]. tel:[phone] Referring Provider: Dionicio Virgen Jr, [address], [place], [address]. tel:[phone] [facility] [address] [place], [place] [address], [place], [place], [id number], tel:[phone] [place] No Information Apr-0 1-201 6 Hauschild Pamela. [address] [place] [address], [address], [place], [facility], . tel:[phone] Referring Provider: Dionicio Virgen Jr, [address], [place], [address]. tel:[phone], [place], [place], [id number], tel:[phone] [place] No Information Mar-3 0-201 6 Vincentprabha Beaver. [address] [place] [address], [address], [place], [facility], [place]. tel:[phone] Referring Provider: Dionicio Virgen Jr, [address], [place], [address]. tel:[phone] [address] [place] [address], [id number], tel:[phone] [place] No Information Mar-2 3-201 6 Hauschild Pamela. [address] [place] [address], [address], [place], [facility], [place]. tel:[phone] Referring Provider: Dionicio Virgen Jr, [address], [place], [address]. tel:[phone] [facility] [address] [place] [address] [address], [place], [id number], [place] tel:[phone] [place] No Information Mar-1 8-201 6 Hauschild Pamela. [address] [place] [address], [address], [place], [address], [place]. tel:[phone] Referring Provider: Dionicio Virgen Jr, [address], [place], [address]. tel:[phone] [facility] [address], [id number], tel:[phone] [place] No Information Mar-1 1-201 6 Charles Santiago. [address] [place] [address], [address], [facility], . tel:[phone] Referring Provider: Dionicio Virgen Jr, [address], [place], [address]. tel:[phone] [facility] [address], [id number], tel:[phone] [place] No Information Mar-0 9-201 6 Charles Santiago. [address] [place] [address], [address], [facility], . tel:[phone] Referring Provider: Dionicio Virgen Jr, [address], [place], [address]. tel:[phone] [facility], [address], [id number], tel:[phone] [place] Stiffness of right elbow, not elsewhere classifiedEffus ion, right elbowStiffness of right wrist, not elsewhere classifiedPain in right elbowMuscle weakness (generalized)La teral epicondylitis, right elbow Mar-0 4-201 6 Charles Santiago. [address] [place] [address], [address], [facility], . tel:[phone] Referring Provider: Dionicio Virgen Jr, [address], [place], [address]. tel:[phone] Family History Family Member Type Diagnosis Age [...]
--- OUTSIDE RECORDS SUMMARY | 2015-10-17 12:23 | XMS_ITS | Continuity of Care Document ---
Author Organization [employer] [place] Address [address] [facility] [address] [place] [address] Phone Care Team Providers Care Director Family Name Role Phone Charles MS, OTR/L, CHT, [...] Diagnoses Date Provider Providers Copied on Encounter [facility] [address] [place] [address], [id number], tel:[phone] [place] No Information Apr-1 3-201 6 Charles Santiago. [address] [place] [address], [address], [place], [facility], . tel:[phone] [address], [place], [id number], tel:[phone] [place] No Information Apr-0 8-201 6 Charles Santiago. [address] [place] [address], [address], [place], [facility], . tel:[phone] Referring Provider: Dionicio Virgen Jr, [address], [place], [address]. tel:[phone] [address] [address], [place], [id number], tel:[phone] [place] No Information Apr-0 6-201 6 Charles Santiago. [address] [facility], [address], [place], [facility], [place]. tel:[phone] Referring Provider: Dionicio Virgen Jr, [address], [place], [address]. tel:[phone] [facility] [address] [place], [place] [address], [place], [place], [id number], tel:[phone] [place] No Information Apr-0 1-201 6 Hauschild Pamela. [address] [place] [address], [address], [place], [facility], . tel:[phone] Referring Provider: Dionicio Virgen Jr, [address], [place], [address]. tel:[phone] [address], [place], [place], [id number], tel:[phone] [place] No Information Mar-3 0-201 6 Vincentprabha Beaver. [address] [place] [address], [address], [place], [facility], [place]. tel:[phone] Referring Provider: Dionicio Virgen Jr, [address], [place], [address]. tel:[phone] [address] [place] [address], [id number], tel:[phone] [place] No Information Mar-2 3-201 6 Hauschild Pamela. [address] [place] [address], [address], [place], [facility], [place]. tel:[phone] Referring Provider: Dionicio Virgen Jr, [address], [place], [address]. tel:[phone] [facility] [address] [place], [place] [address] [address], [place], [id number], [place] tel:[phone] [place] No Information Mar-1 8-201 6 Hauschild Pamela. [address] [place] [address], [address], [place], [address], [place]. tel:[phone] Referring Provider: Dionicio Virgen Jr, [address], [place], [address]. tel:[phone] [facility] [address], [id number], tel:[phone] [place] No Information Mar-1 1-201 6 Charles Santiago. [address] [place] [address], [address], [place], [facility], . tel:[phone] Referring Provider: Dionicio Virgen Jr, [address], [place], [address]. tel:[phone] [facility] [address], [id number], tel:[phone] [place] No Information Mar-0 9-201 6 Charles Santiago. [address] [place] [address], [address], [facility], . tel:[phone] Referring Provider: Dionicio Virgen Jr, [address], [place], [address]. tel:[phone] [facility], [address], [id number], tel:[phone] [place] Stiffness of right elbow, not elsewhere classifiedEffus ion, right elbowStiffness of right wrist, not elsewhere classifiedPain in right elbowMuscle weakness (generalized)La teral epicondylitis, right elbow Mar-0 4-201 6 Charles Santiago. [address] [place] [address], [address], [place], [facility], . tel:[phone] Referring Provider: Dionicio Virgen Jr, [address], [place], [address]. tel:[phone] Family History Family Member Type Diagnosis Age At Onset No Information Payers Payer name Insurance type Covered libertarian ID Authoriza tion(s) No Information Social History [...]
--- OUTSIDE RECORDS SUMMARY | 2015-10-17 12:23 | XMS_ITS | Continuity of Care Document ---
Author Organization [facility] [place] Address [address] 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 [address] [place] [address], [address], [place], [facility], . tel:[phone], [place], [id number], tel:[phone] [place] No Information Apr-0 8-201 6 Charles Santiago. [address] [place] [address], [address], [place], [facility], . tel:[phone] Referring Provider: Dionicio Virgen Jr, [address], [place], [address]. tel:[phone] [address], [place], [id number], tel:[phone] [place] No Information Apr-0 6-201 6 Charles Santiago. [address] [place], [address], [place], [facility], [place]. tel:[phone] Referring Provider: Dionicio Virgen Jr, [address], [place], [address]. tel:[phone] [facility] [address] [place], [place] [address], [place], [place], [id number], tel:[phone] [place] No Information Apr-0 1-201 6 Hauschild Pamela. [address] [place] [address], [address], [place], [facility], . tel:[phone] Referring Provider: Dionicio Virgen Jr, [address], [place], [address]. tel:[phone] [address], [place], [place], [id number], tel:[phone] [place] No Information Mar-3 0-201 6 Vincentprabha Beaver. [address] [place] [address], [address], [place], [facility], [place]. tel:[phone] Referring Provider: Dionicio Virgen Jr, [address], [place], [address]. tel:[phone] [address] [place] [address], [id number], tel:[phone] [place] No Information Mar-2 3-201 6 Hauschild Pamela. [address] [place] [address], [address], [place], [facility], [place]. tel:[phone] Referring Provider: Dionicio Virgen Jr, [address], [place], [address]. tel:[phone] [facility] [address] [place] [address], [place], [place], [id number], [place] tel:[phone] [place] No Information Mar-1 8-201 6 Hauschild Pamela. [address] [place] [address], [address], [place], [address], [place]. tel:[phone] Referring Provider: Dionicio Virgen Jr, [address], [place], [address]. tel:[phone] [facility] [address], [id number], tel:[phone] [place] No Information Mar-1 1-201 6 Charles Santiago. [address] [place] [address], [address], [place], [facility], . tel:[phone] Referring Provider: Dionicio Virgen Jr, [address], [place], [address]. tel:[phone] [facility] [address], [id number], tel:[phone] [place] No Information Mar-0 9-201 6 Charles Santiago. [address] [place] [address], [address], [facility], . tel:[phone] Referring Provider: Dionicio Virgen Jr, [address], [place], [address]. tel:[phone] [facility], [address], [id number], tel:[phone] [place] Stiffness of right elbow, not elsewhere classifiedEffus ion, right elbowStiffness of right wrist, not elsewhere classifiedPain in right elbowMuscle weakness (generalized)La teral epicondylitis, right elbow Mar-0 4-201 6 Charles Santiago. [address] [place] [address], [address], [place], [facility], . tel:[phone] Referring Provider: Dionicio Virgen Jr, [address], [place], [address]. tel:[phone] Family History Family Member Type Diagnosis Age At Onset No Information Payers Payer name Insurance type Covered republican ID Authoriza tion(s) No Information Social History [...]
--- OUTSIDE RECORDS SUMMARY | 2015-10-17 12:23 | XMS_ITS | Continuity of Care Document ---
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 [address] [place] [address], [address], [place], [facility], . tel:[phone], [place], [id number], tel:[phone] [place] No Information Apr-0 8-201 6 Charles Santiago. [address] [place] [address], [address], [place], [place], [facility], . tel:[phone] Referring Provider: Dionicio Virgen Jr, [address], [place], [address]. tel:[phone] [address], [place], [id number], tel:[phone] [place] No Information Apr-0 6-201 6 Charles Santiago. [address] [facility], [address], [place], [facility], [place]. tel:[phone] Referring Provider: Dionicio Virgen Jr, [address], [place], [address]. tel:[phone] [facility] [address] [place], [place] [address], [place], [id number], tel:[phone] [place] No Information Apr-0 1-201 6 Hauschild Pamela. [address] [place] [address], [address], [place], [facility], . tel:[phone] Referring Provider: Dionicio Virgen Jr, [address], [place], [address]. tel:[phone] [address], [place], [place], [id number], tel:[phone] [place] No Information Mar-3 0-201 6 Vincentprabha Beaver. [address] [place] [address], [address], [place], [facility], [place]. tel:[phone] Referring Provider: Dionicio Virgen Jr, [address], [place], [address]. tel:[phone] [place] [address], [id number], tel:[phone] [place] No Information Mar-2 3-201 6 Hauschild Pamela. [address] [place] [address], [address], [place], [facility], [place]. tel:[phone] Referring Provider: Dionicio Virgen Jr, [address], [place], [address]. tel:[phone] [facility] [address] [place] [address] [address], [place], [place], [id number], [place] tel:[phone] [place] No Information Mar-1 8-201 6 Hauschild Pamela. [address] [place] [address], [address], [place], [address], [place]. tel:[phone] Referring Provider: Dionicio Virgen Jr, [address], [place], [address]. tel:[phone] [facility] [address], [id number], tel:[phone] [place] No Information Mar-1 1-201 6 Charles Santiago. [address] [place] [address], [address], [facility], . tel:[phone] Referring Provider: Dionicio Virgen Jr, [address], [place], [address]. tel:[phone] [facility] [address], [id number], tel:[phone] [place] No Information Mar-0 9-201 6 Charles Santiago. [address] [place] [address], [address], [facility], . tel:[phone] Referring Provider: Dionicio Virgen Jr, [address], [place], [address]. tel:[phone] [facility], [address], [id number], tel:[phone] [place] Stiffness of right elbow, not elsewhere classifiedEffus ion, right elbowStiffness of right wrist, not elsewhere classifiedPain in right elbowMuscle weakness (generalized)La teral epicondylitis, right elbow Mar-0 4-201 6 Charles Santiago. [address] [place] [address], [address], [facility], . tel:[phone] Referring Provider: Dionicio Virgen Jr, [address], [place], [address]. tel:[phone] Family History Family Member Type Diagnosis Age [...]
--- OUTSIDE RECORDS SUMMARY | 2015-10-17 12:23 | XMS_ITS | Continuity of Care Document ---
Author Organization [facility] Address [address] 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 [address] [place] [address], [address] [place], [place], [facility], . tel:[phone], [place], [id number], tel:[phone] [place] No Information Apr-0 8-201 6 Charles Santiago. [address] [place] [address], [address], [place], [place], [facility], . tel:[phone] Referring Provider: Dionicio Virgen Jr, [address], [place], [address]. tel:[phone] [address], [place], [id number], tel:[phone] [place] Laird No Information Apr-0 6-201 6 Charles Santiago. [address] [facility], [address], [place], [facility], [place]. tel:[phone] Referring Provider: Dionicio Virgen Jr, [address], [place], [address]. tel:[phone] [facility] [address] [place], [place] [address], [place], [place], [id number], tel:[phone] Penn Laird No Information Apr-0 1-201 6 Hauschild Pamela. [address] [place] [address], [address], [place], [facility], . tel:[phone] Referring Provider: Dionicio Virgen Jr, [address], [place], [address]. tel:[phone] [address], [place], [place], [id number], tel:[phone] Penn Laird No Information Mar-3 0-201 6 Vincetnrpabha Beaver. [address] [place] [address], [address], [place], [facility], [place]. tel:[phone] Referring Provider: Dionicio Virgen Jr, [address], [place], [address]. tel:[phone] [address] [place] [address], [id number], tel:[phone] [place] Laird No Information Mar-2 3-201 6 Hauschild Pamela. [address] [place] [address], [address], [place], [facility], [place]. tel:[phone] Referring Provider: Dionicio Virgen Jr, [address], [place], [address]. tel:[phone] [facility] [address] [place], [place] [address], [place], [place], [id number], [place] tel:[phone] Penn Laird No Information Mar-1 8-201 6 Hauschild Pamela. [address] [place] [address], [address], [place], [address], [place]. tel:[phone] Referring Provider: Dionicio Virgen Jr, [address], [place], [address]. tel:[phone] [facility] [address], [id number], tel:[phone] [place] Laird No Information Mar-1 1-201 6 Charles Santiago. [address] [place] [address], [address], [place], [facility], . tel:[phone] Referring Provider: Dionicio Virgen Jr, [address], [place], [address]. tel:[phone] [facility] [address], [id number], tel:[phone] Penn Laird No Information Mar-0 9-201 6 Charles Santiago. [address] [place] [address], [address], [facility], . tel:[phone] Referring Provider: Dionicio Virgen Jr, [address], [place], [address]. tel:[phone] [facility], [address], [id number], tel:[phone] Penn Laird Stiffness of right elbow, not elsewhere classifiedEffus ion, right elbowStiffness of right wrist, not elsewhere classifiedPain in right elbowMuscle weakness (generalized)La teral epicondylitis, right elbow Mar-0 4-201 6 Charles Santiago. [address] [place] [address], [address], [place], [facility], . tel:[phone] Referring Provider: Dionicio Virgen Jr, [address], [place], [address]. tel:[phone] Family History Family Member Type Diagnosis Age [...]
--- OUTSIDE RECORDS SUMMARY | 2015-10-17 12:23 | XMS_ITS | Continuity of Care Document ---
Author Organization [facility] Address [address] [facility] [address] [place] [address] Phone Care Team Providers Care Swatcher Name Role Phone Charles MS, OTR/L, CHT, [...] Diagnoses Date Provider Providers Copied on Encounter [facility] [address] [place] [address], [id number], tel:[phone] [place] No Information Apr-1 3-201 6 Charles Santiago. [address] [place] [address], [address], [place], [facility], . tel:[phone], [place], [id number], tel:[phone] [place] No Information Apr-0 8-201 6 Charles Santiago. [address] [place] [address], [address], [place], [facility], . tel:[phone] Referring Provider: Dionicio Virgen Jr, [address], [place], [address]. tel:[phone] [address], [place], [id number], tel:[phone] [place] No Information Apr-0 6-201 6 Charles Santiago. [address] [facility], [address], [place], [facility], [place]. tel:[phone] Referring Provider: Dionicio Virgen Jr, [address], [place], [address]. tel:[phone] [facility] [address] [place], [place] [address], [place], [place], [id number], tel:[phone] [place] No Information Apr-0 1-201 6 Hauschild Pamela. [address] [place] [address], [address], [place], [facility], . tel:[phone] Referring Provider: Dionicio Virgen Jr, [address], [place], [address]. tel:[phone] [address], [place], [place], [id number], tel:[phone] Printer No Information Mar-3 0-201 6 Vincentprabha Beaver. [address] [place] [address], [address], [place], [facility], [place]. tel:[phone] Referring Provider: Dionicio Virgen Jr, [address], [place], [address]. tel:[phone] [place] [address], [id number], tel:[phone] Printer No Information Mar-2 3-201 6 Hauschild Pamela. [address] [place] [address], [address], [place], [facility], [place]. tel:[phone] Referring Provider: Dionicio Virgen Jr, [address], [place], [address]. tel:[phone] [facility] [address] [place] [address] [address], [place], [place], [id number], [place] tel:[phone] Printer No Information Mar-1 8-201 6 Hauschild Pamela. [address] [place] [address], [address], [place], [address], [place]. tel:[phone] Referring Provider: Dionicio Virgen Jr, [address], [place], [address]. tel:[phone] [facility] [address], [id number], tel:[phone] Printer No Information Mar-1 1-201 6 Charles Santiago. [address] [place] [address], [address], [facility], . tel:[phone] Referring Provider: Dionicio Virgen Jr, [address], [place], [address]. tel:[phone] [facility] [address], [id number], tel:[phone] Printer No Information Mar-0 9-201 6 Charles Santiago. [address] [place] [address], [address], [facility], . tel:[phone] Referring Provider: Dionicio Virgen Jr, [address], [place], [address]. tel:[phone] [facility], [address], [id number], tel:[phone] Printer Stiffness of right elbow, not elsewhere classifiedEffus ion, right elbowStiffness of right wrist, not elsewhere classifiedPain in right elbowMuscle weakness (generalized)La teral epicondylitis, right elbow Mar-0 4-201 6 Charles Santiago. [address] [place] [address], [address], [facility], . tel:[phone] Referring Provider: Dionicio Virgen Jr, [address], [place], [address]. tel:[phone] Family History Family Member Type Diagnosis Age At Onset No Information Payers Payer name Insurance type Covered constitution party ID Authoriza tion(s) No Information Social [...]
--- OUTSIDE RECORDS SUMMARY | 2015-10-17 12:23 | XMS_ITS | Continuity of Care Document ---
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 [address] [place] [address], [address], [place], [facility], . tel:[phone], [place], [id number], tel:[phone] [place] No Information Apr-0 8-201 6 Charles Santiago. [address] [place] [address], [address], [place], [place], [facility], . tel:[phone] Referring Provider: Dionicio Virgen Jr, [address], [place], [address]. tel:[phone] [address], [place], [id number], tel:[phone] [place] No Information Apr-0 6-201 6 Charles Santiago. [address] [facility], [address], [place], [facility], [place]. tel:[phone] Referring Provider: Dionicio Virgen Jr, [address], [place], [address]. tel:[phone] [facility] [address] [place], [place] [address], [place], [place], [id number], tel:[phone] [place] No Information Apr-0 1-201 6 Hauschild Pamela. [address] [place] [address], [address], [place], [facility], . tel:[phone] Referring Provider: Dionicio Virgen Jr, [address], [place], [address]. tel:[phone] [address], [place], [place], [id number], tel:[phone] [place] No Information Mar-3 0-201 6 Vincentprabha Beaver. [address] [place] [address], [address], [place], [facility], [place]. tel:[phone] Referring Provider: Dionicio Virgen Jr, [address], [place], [address]. tel:[phone] [place] [address], [id number], tel:[phone] [place] No Information Mar-2 3-201 6 Hauschild Pamela. [address] [place] [address], [address], [place], [facility], [place]. tel:[phone] Referring Provider: Dionicio Virgen Jr, [address], [place], [address]. tel:[phone] [facility] [address] [place], [place] [address] [address], [place], [place], [id number], [place] tel:[phone] [place] No Information Mar-1 8-201 6 Hauschild Pamela. [address] [place] [address], [address], [place], [address], [place]. tel:[phone] Referring Provider: Dionicio Virgen Jr, [address], [place], [address]. tel:[phone] [facility] [address], [id number], tel:[phone] [place] No Information Mar-1 1-201 6 Charles Santiago. [address] [place] [address], [address], [place], [facility], . tel:[phone] Referring Provider: Dionicio Virgen Jr, [address], [place], [address]. tel:[phone] [facility] [address], [id number], tel:[phone] [place] No Information Mar-0 9-201 6 Charles Santiago. [address] [place] [address], [address], [facility], . tel:[phone] Referring Provider: Dionicio Virgen Jr, [address], [place], [address]. tel:[phone] [facility], [address], [id number], tel:[phone] [place] Stiffness of right elbow, not elsewhere classifiedEffus ion, right elbowStiffness of right wrist, not elsewhere classifiedPain in right elbowMuscle weakness (generalized)La teral epicondylitis, right elbow Mar-0 4-201 6 Charles Santiago. [address] [place] [address], [address], [place], [facility], . tel:[phone] Referring Provider: Dionicio Virgen Jr, [address], [place], [address]. tel:[phone] Family History Family Member Type Diagnosis Age [...]
--- OUTSIDE RECORDS SUMMARY | 2015-10-17 12:23 | XMS_ITS | Continuity of Care Document ---
Author Organization [employer] [facility] Address [address] [facility] [address] [place] [address] Phone Care Team Providers Care Assurance Senior Name Role Phone Charles MS, OTR/L, CHT, [...] Date Provider Providers Copied on Encounter [facility] [address] [place] [address], [id number], tel:[phone] [place] No Information Apr-1 3-201 6 Charles Santiago. [address] [place] [address], [address], [place], [facility], . tel:[phone] [address], [place], [id number], tel:[phone] [place] No Information Apr-0 8-201 6 Charles Santiago. [address] [place] [address], [address], [place], [facility], . tel:[phone] Referring Provider: Dionicio Virgen Jr, [address], [place], [address]. tel:[phone] [address], [place], [id number], tel:[phone] [place] No Information Apr-0 6-201 6 Charles Santiago. [address] [facility], [address], [place], [facility], [place]. tel:[phone] Referring Provider: Dionicio Virgen Jr, [address], [place], [address]. tel:[phone] [facility] [address] [place], [place] [address], [place], [id number], tel:[phone] [place] No Information Apr-0 1-201 6 Hauschild Pamela. [address] [place] [address], [address], [place], [facility], . tel:[phone] Referring Provider: Dionicio Virgen Jr, [address], [place], [address]. tel:[phone] [address], [place], [id number], tel:[phone] [place] No Information Mar-3 0-201 6 Vincentprabha Beaver. [address] [place] [address], [address], [place], [facility], [place]. tel:[phone] Referring Provider: Dionicio Virgen Jr, [address], [place], [address]. tel:[phone] [place] [address], [id number], tel:[phone] [place] No Information Mar-2 3-201 6 Hauschild Pamela. [address] [place] [address], [address], [place], [facility], [place]. tel:[phone] Referring Provider: Dionicio Virgen Jr, [address], [place], [address]. tel:[phone] [facility] [address] [place], [place] [address] [address], [place], [id number], [place] tel:[phone] [place] No Information Mar-1 8-201 6 Hauschild Pamela. [address] [place] [address], [address], [place], [address], [place]. tel:[phone] Referring Provider: Dionicio Virgen Jr, [address], [place], [address]. tel:[phone] [facility] [address], [id number], tel:[phone] [place] No Information Mar-1 1-201 6 Charles Santiago. [address] [place] [address], [address], [place], [facility], . tel:[phone] Referring Provider: Dionicio Virgen Jr, [address], [place], [address]. tel:[phone] [facility] [address], [id number], tel:[phone] [place] No Information Mar-0 9-201 6 Charles Santiago. [address] [place] [address], [address], [facility], . tel:[phone] Referring Provider: Dionicio Virgen Jr, [address], [place], [address]. tel:[phone] [facility], [address], [id number], tel:[phone] [place] Stiffness of right elbow, not elsewhere classifiedEffus ion, right elbowStiffness of right wrist, not elsewhere classifiedPain in right elbowMuscle weakness (generalized)La teral epicondylitis, right elbow Mar-0 4-201 6 Charles Santiago. [address] [place] [address], [address], [place], [facility], . tel:[phone] Referring Provider: Dionicio Virgen Jr, [address], [place], [address]. tel:[phone] Family History Family Member Type Diagnosis Age At Onset No Information Payers Payer name Insurance type Covered democrat ID Authoriza tion(s) No Information Social History [...]
--- OUTSIDE RECORDS SUMMARY | 2015-10-17 12:23 | XMS_ITS | Continuity of Care Document ---
Author Organization [facility] [place] Address [address] [facility] [address] [place] [address] Phone Care Team Providers Care Skirt Clipper Name Role Phone Charles MS, OTR/L, CHT, [...] Diagnoses Date Provider Providers Copied on Encounter [facility] [address] [place] [address], [id number], tel:[phone] [place] No Information Apr-1 3-201 6 Charles Santiago. [address] [place] [address], [address], [place], [facility], . tel:[phone], [place], [id number], tel:[phone] [place] No Information Apr-0 8-201 6 Charles Santiago. [address] [place] [address], [address], [place], [facility], . tel:[phone] Referring Provider: Dionicio Virgen Jr, [address], [place], [address]. tel:[phone] [address], [place], [id number], tel:[phone] [place] No Information Apr-0 6-201 6 Charles Santiago. [address] [facility], [address], [place], [facility], [place]. tel:[phone] Referring Provider: Dionicio Virgen Jr, [address], [place], [address]. tel:[phone] [facility] [address] [place], [place] [address], [place], [place], [id number], tel:[phone] [place] No Information Apr-0 1-201 6 Hauschild Pamela. [address] [place] [address], [address], [place], [facility], . tel:[phone] Referring Provider: Dionicio Virgen Jr, [address], [place], [address]. tel:[phone] [address], [place], [place], [id number], tel:[phone] [place] No Information Mar-3 0-201 6 Vincentprabha Beaver. [address] [place] [address], [address], [place], [facility], [place]. tel:[phone] Referring Provider: Dionicio Virgen Jr, [address], [place], [address]. tel:[phone] [place] [address], [id number], tel:[phone] [place] No Information Mar-2 3-201 6 Hauschild Pamela. [address] [place] [address], [address], [place], [facility], [place]. tel:[phone] Referring Provider: Dionicio Virgen Jr, [address], [place], [address]. tel:[phone] [facility] [address] [place], [place] [address], [place], [place], [id number], [place] tel:[phone] [place] No Information Mar-1 8-201 6 Hauschild Pamela. [address] [place] [address], [address], [place], [address], [place]. tel:[phone] Referring Provider: Dionicio Virgen Jr, [address], [place], [address]. tel:[phone] [facility] [address], [id number], tel:[phone] [place] No Information Mar-1 1-201 6 Charles Santiago. [address] [place] [address], [address], [place], [facility], . tel:[phone] Referring Provider: Dionicio Virgen Jr, [address], [place], [address]. tel:[phone] [facility] [address], [id number], tel:[phone] [place] No Information Mar-0 9-201 6 Charles Santiago. [address] [place] [address], [address], [facility], . tel:[phone] Referring Provider: Dionicio Virgen Jr, [address], [place], [address]. tel:[phone] [facility], [address], [id number], tel:[phone] [place] Stiffness of right elbow, not elsewhere classifiedEffus ion, right elbowStiffness of right wrist, not elsewhere classifiedPain in right elbowMuscle weakness (generalized)La teral epicondylitis, right elbow Mar-0 4-201 6 Charles Santiago. [address] [place] [address], [address], [place], [facility], . tel:[phone] Referring Provider: Dionicio Virgen Jr, [address], [place], [address]. tel:[phone] Family History Family Member Type Diagnosis Age [...]
--- OUTSIDE RECORDS SUMMARY | 2015-10-17 12:23 | XMS_ITS | Continuity of Care Document ---
Author Organization [facility] Address [address] [facility] [address] [place] [address] Phone Care Team Providers Care Shell Plater Name Role Phone Charles MS, OTR/L, CHT, [...] Diagnoses Date Provider Providers Copied on Encounter [facility] [address] [place] [address], [id number], tel:[phone] [place] No Information Apr-1 3-201 6 Charles Santiago. [address] [place] [address], [address], [place], [facility], . tel:[phone] [address], [place], [id number], tel:[phone] [place] No Information Apr-0 8-201 6 Charles Santiago. [address] [place] [address], [address], [place], [facility], . tel:[phone] Referring Provider: Dionicio Virgen Jr, [address], [place], [address]. tel:[phone] [address] [address], [place], [id number], tel:[phone] [place] No Information Apr-0 6-201 6 Charles Santiago. [address] [facility], [address], [place], [facility], [place]. tel:[phone] Referring Provider: Dionicio Virgen Jr, [address], [place], [address]. tel:[phone] [facility] [address] [place], [place] [address], [place], [place], [id number], tel:[phone] [place] No Information Apr-0 1-201 6 Hauschild Pamela. [address] [place] [address], [address], [place], [facility], . tel:[phone] Referring Provider: Dionicio Virgen Jr, [address], [place], [address]. tel:[phone] [address], [place], [place], [id number], tel:[phone] [place] No Information Mar-3 0-201 6 Vincentprabha Beaver. [address] [place] [address], [address], [place], [facility], [place]. tel:[phone] Referring Provider: Dionicio Virgen Jr, [address], [place], [address]. tel:[phone] [address] [place] [address], [id number], tel:[phone] [place] No Information Mar-2 3-201 6 Hauschild Pamela. [address] [place] [address], [address], [place], [facility], [place]. tel:[phone] Referring Provider: Dionicio Virgen Jr, [address], [place], [address]. tel:[phone] [facility] [address] [place], [place] [address], [place], [place], [id number], [place] tel:[phone] [place] No Information Mar-1 8-201 6 Hauschild Pamela. [address] [place] [address], [address], [place], [address], [place]. tel:[phone] Referring Provider: Dionicio Virgen Jr, [address], [place], [address]. tel:[phone] [facility] [address], [id number], tel:[phone] [place] No Information Mar-1 1-201 6 Charles Santiago. [address] [place] [address], [address], [place], [facility], . tel:[phone] Referring Provider: Dionicio Virgen Jr, [address], [place], [address]. tel:[phone] [facility] [address], [id number], tel:[phone] [place] No Information Mar-0 9-201 6 Charles Santiago. [address] [place] [address], [address], [facility], . tel:[phone] Referring Provider: Dionicio Virgen Jr, [address], [place], [address]. tel:[phone] [facility], [address], [id number], tel:[phone] [place] Stiffness of right elbow, not elsewhere classifiedEffus ion, right elbowStiffness of right wrist, not elsewhere classifiedPain in right elbowMuscle weakness (generalized)La teral epicondylitis, right elbow Mar-0 4-201 6 Charles Santiago. [address] [place] [address], [address], [place], [facility], . tel:[phone] Referring Provider: Dionicio Virgen Jr, [address], [place], [address]. tel:[phone] Family History Family Member Type Diagnosis Age [...]
--- OUTSIDE RECORDS SUMMARY | 2015-10-17 12:23 | XMS_ITS | Continuity of Care Document ---
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 [address] [place] [address], [address], [place], [facility], . tel:[phone] [address], [place], [id number], tel:[phone] [place] No Information Apr-0 8-201 6 Charles Santiago. [address] [place] [address], [address], [place], [place], [facility], . tel:[phone] Referring Provider: Dionicio Virgen Jr, [address], [place], [address]. tel:[phone] [address] [address], [place], [id number], tel:[phone] [place] No Information Apr-0 6-201 6 Charles Santiago. [address] [facility], [address], [place], [facility], [place]. tel:[phone] Referring Provider: Dionicio Virgen Jr, [address], [place], [address]. tel:[phone] [facility] [address] [place], [place] [address], [place], [place], [id number], tel:[phone] [place] No Information Apr-0 1-201 6 Hauschild Pamela. [address] [place] [address], [address], [place], [facility], . tel:[phone] Referring Provider: Dionicio Virgen Jr, [address], [place], [address]. tel:[phone] [address], [place], [place], [id number], tel:[phone] [place] No Information Mar-3 0-201 6 Vincentprabha Beaver. [address] [place] [address], [address], [place], [facility], [place]. tel:[phone] Referring Provider: Dionicio Virgen Jr, [address], [place], [address]. tel:[phone] [place] [address], [id number], tel:[phone] [place] No Information Mar-2 3-201 6 Hauschild Pamela. [address] [place] [address], [address], [place], [facility], [place]. tel:[phone] Referring Provider: Dionicio Virgen Jr, [address], [place], [address]. tel:[phone] [facility] [address] [place] [address], [place], [place], [id number], [place] tel:[phone] [place] No Information Mar-1 8-201 6 Hauschild Pamela. [address] [place] [address], [address], [place], [address], [place]. tel:[phone] Referring Provider: Dionicio Virgen Jr, [address], [place], [address]. tel:[phone] [facility] [address], [id number], tel:[phone] [place] No Information Mar-1 1-201 6 Charles Santiago. [address] [place] [address], [address], [place], [facility], . tel:[phone] Referring Provider: Dionicio Virgen Jr, [address], [place], [address]. tel:[phone] [facility] [address], [id number], tel:[phone] [place] No Information Mar-0 9-201 6 Charles Santiago. [address] [place] [address], [address], [facility], . tel:[phone] Referring Provider: Dionicio Virgen Jr, [address], [place], [address]. tel:[phone] [facility], [address], [id number], tel:[phone] [place] Stiffness of right elbow, not elsewhere classifiedEffus ion, right elbowStiffness of right wrist, not elsewhere classifiedPain in right elbowMuscle weakness (generalized)La teral epicondylitis, right elbow Mar-0 4-201 6 Charles Santiago. [address] [place] [address], [address], [place], [facility], . tel:[phone] Referring Provider: Dionicio Virgen Jr, [address], [place], [address]. tel:[phone] Family History Family Member Type Diagnosis Age [...]
--- OUTSIDE RECORDS SUMMARY | 2015-10-17 12:23 | XMS_ITS | Continuity of Care Document ---
Author Organization [facility] Address [address] [facility] [address] [place] [address] Phone Care Team Providers Care Probation Officer Name Role Phone Charles MS, OTR/L, CHT, [...] Diagnoses Date Provider Providers Copied on Encounter [facility] [address] [place] [address], [id number], tel:[phone] [place] No Information Apr-1 3-201 6 Charles Santiago. [address] [place] [address], [address], [place], [facility], . tel:[phone] [address], [place], [id number], tel:[phone] [place] No Information Apr-0 8-201 6 Charles Santiago. [address] [place] [address], [address], [place], [place], [facility], . tel:[phone] Referring Provider: Dionicio Virgen Jr, [address], [place], [address]. tel:[phone] [address] [address], [place], [id number], tel:[phone] [place] No Information Apr-0 6-201 6 Charles Santiago. [address] [facility], [address], [place], [facility], [place]. tel:[phone] Referring Provider: Dionicio Virgen Jr, [address], [place], [address]. tel:[phone] [facility] [address] [place], [place] [address], [place], [place], [id number], tel:[phone] [place] No Information Apr-0 1-201 6 Hauschild Pamela. [address] [place] [address], [address], [place], [facility], . tel:[phone] Referring Provider: Dionicio Virgen Jr, [address], [place], [address]. tel:[phone] [address], [place], [place], [id number], tel:[phone] [place] No Information Mar-3 0-201 6 Vincentprabha Beaver. [address] [place] [address], [address], [place], [facility], [place]. tel:[phone] Referring Provider: Dionicio Virgen Jr, [address], [place], [address]. tel:[phone] [address] [place] [address], [id number], tel:[phone] [place] No Information Mar-2 3-201 6 Hauschild Pamela. [address] [place] [address], [address], [place], [facility], [place]. tel:[phone] Referring Provider: Dionicio Virgen Jr, [address], [place], [address]. tel:[phone] [facility] [address] [place] [address], [place], [place], [id number], [place] tel:[phone] [place] No Information Mar-1 8-201 6 Hauschild Pamela. [address] [place] [address], [address], [place], [address], [place]. tel:[phone] Referring Provider: Dionicio Virgen Jr, [address], [place], [address]. tel:[phone] [facility] [address], [id number], tel:[phone] [place] No Information Mar-1 1-201 6 Charles Santiago. [address] [place] [address], [address], [place], [facility], . tel:[phone] Referring Provider: Dionicio Virgen Jr, [address], [place], [address]. tel:[phone] [facility] [address], [id number], tel:[phone] [place] No Information Mar-0 9-201 6 Charles Santiago. [address] [place] [address], [address], [facility], . tel:[phone] Referring Provider: Dionicio Virgen Jr, [address], [place], [address]. tel:[phone] [facility], [address], [id number], tel:[phone] [place] Stiffness of right elbow, not elsewhere classifiedEffus ion, right elbowStiffness of right wrist, not elsewhere classifiedPain in right elbowMuscle weakness (generalized)La teral epicondylitis, right elbow Mar-0 4-201 6 Charles Santiago. [address] [place] [address], [address], [place], [facility], . tel:[phone] Referring Provider: Dionicio Virgen Jr, [address], [place], [address]. tel:[phone] Family History Family Member Type Diagnosis Age [...]
--- OUTSIDE RECORDS SUMMARY | 2015-10-17 12:23 | XMS_ITS | Continuity of Care Document ---
Author Organization [facility] [place] Address [address] 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 [address] [place] [address], [address], [place], [facility], . tel:[phone] [address], [place], [id number], tel:[phone] [place] No Information Apr-0 8-201 6 Charles Santiago. [address] [place] [address], [address], [place], [facility], . tel:[phone] Referring Provider: Dionicio Virgen Jr, [address], [place], [address]. tel:[phone], [place], [id number], tel:[phone] [place] No Information Apr-0 6-201 6 Charles Santiago. [address] [facility], [address], [place], [facility], [place]. tel:[phone] Referring Provider: Dionicio Virgen Jr, [address], [place], [address]. tel:[phone] [facility] [address] [place], [place] [address], [place], [place], [id number], tel:[phone] [place] No Information Apr-0 1-201 6 Hauschild Pamela. [address] [place] [address], [address], [place], [facility], . tel:[phone] Referring Provider: Dionicio Virgen Jr, [address], [place], [address]. tel:[phone], [place], [place], [id number], tel:[phone] [place] No Information Mar-3 0-201 6 Vincentprabha Beaver. [address] [place] [address], [address], [place], [facility], [place]. tel:[phone] Referring Provider: Dionicio Virgen Jr, [address], [place], [address]. tel:[phone] [place] [address], [id number], tel:[phone] [place] No Information Mar-2 3-201 6 Hauschild Pamela. [address] [place] [address], [address], [place], [facility], [place]. tel:[phone] Referring Provider: Dionicio Virgen Jr, [address], [place], [address]. tel:[phone] [facility] [address] [place] [address] [address], [place], [place], [id number], [place] tel:[phone] [place] No Information Mar-1 8-201 6 Hauschild Pamela. [address] [place] [address], [address], [place], [address], [place]. tel:[phone] Referring Provider: Dionicio Virgen Jr, [address], [place], [address]. tel:[phone] [facility] [address], [id number], tel:[phone] [place] No Information Mar-1 1-201 6 Charles Santiago. [address] [place] [address], [address], [place], [facility], . tel:[phone] Referring Provider: Dionicio Virgen Jr, [address], [place], [address]. tel:[phone] [facility] [address], [id number], tel:[phone] [place] No Information Mar-0 9-201 6 Charles Santiago. [address] [place] [address], [address], [facility], . tel:[phone] Referring Provider: Dionicio Virgen Jr, [address], [place], [address]. tel:[phone] [facility], [address], [id number], tel:[phone] [place] Stiffness of right elbow, not elsewhere classifiedEffus ion, right elbowStiffness of right wrist, not elsewhere classifiedPain in right elbowMuscle weakness (generalized)La teral epicondylitis, right elbow Mar-0 4-201 6 Charles Santiago. [address] [place] [address], [address], [place], [facility], . tel:[phone] Referring Provider: Dionicio Virgen Jr, [address], [place], [address]. tel:[phone] Family History Family Member Type Diagnosis Age [...]
[2025-05-08 11:44] VITALS: BMI 42.9
--- OUTSIDE RECORDS SUMMARY | 2025-05-22 00:21 | XMS_ITS | Data Portability ---
Author Organization [employer], [facility] Address [address] [address] Assessment No assessment recorded. Plan of Treatment Reminders Order Date Submit Date Provider Last Modified By Organization Details Last Modified Time Details Appointments None recorded. Lab None recorded. Referral None recorded. Procedures None recorded. Surgeries None recorded. Imaging MRI, knee, w/o contrast - meniscus tear 2016 017 [facility], [address], [place], [address], 7 09:11:26 Medication Orders diclofenac sodium 75 mg tablet,del ayed release 2016 [address]17 [address] [id number], [address], [place], [place], [id number], 7 16:44:12 Patient TargetsNo targets recorded. Patient InstructionsNo instructions recorded. Reason for Referral None Reported. Results Created Date Observation Date Name Description Value Unit Range Abnormal Flag Note LastModifiedBy Organization Detail LastModifiedTime 01/06/20 17 10/03/2016 XR, knee No observ ation record ed. BARCODE Not Available 2016 10:23:33 Result Notes None recorded. Procedures Surgical History Date Name Laterality Status Provider Name and Address Organization Details Recorded Time 3 Hernia Repair completed Magy Duncan [facility] 01/02/2017 15:51:58 Imaging Results None recorded. Procedure Notes None recorded. Medical Equipment None Reported. Allergies No known drug allergies Medications Name Sig Start Date Stop Date Status Note LastModified by Organization Details LastModified Time benzonatate 200 mg capsule active Not Available Not Available N ot Available prednisone 20 mg tablet active Not Available Not Available No t Available acetaminophen 300 mg-codeine 30 mg tablet active Not Available Not Available Not Available triamcinolone acetonide 0.1 % topical cream active Not Available Not Availabl e Not Available amoxicillin 875 mg tablet active Not Available Not Available No t Available cephalexin 500 mg capsule active Not Available Not Available N ot Available diclofenac sodium 75 mg tablet,delayed release Take 1 tablet twice a day by oral route with meals. 2016 active Not Available Not Available Not Avai lable ketoconazole 2 % topical cream active Not Available Not Availa ble Not Available amoxicillin 875 mg-potassium clavulanate 125 mg tablet active Not Available Not Available No t Available Ventolin HFA 90 mcg/actuation aerosol inhaler active Not Available Not Availa ble Not Available Vitals Date Recorded Body height Body mass index (BMI) Body weight Systolic And Diastolic Provider Name and Address Organization Details Last Updated DateTime 01/02/2017 185.42 cm 36.9 kg/m2 429513.86 g 156/99 mm[Hg] Magy Duncan [facility] [employer] [facility], [facility] 01/02/2017 15:42:55 Social History Question Answer Notes LastModified by Organization D etails LastModified Time Marital Status Informati on not available 01/02/2017 How Much Tobacco Do You Smoke? No Information not available 01/02/2017 Work Related Injury? No Information not available 01/02/2017 Sex: Unknown Functional Status Question Answer Note LastModified by Organizat ion Details LastModified Time What is your level of alcohol consumption? 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 Family History Relationship Description Onset Age of this Age Resolved Age Notes LastModified by Organization Details LastModified Time Unspecified Relation Arthritis Not available 15:48:11 Unspecified Relation Diabetes mellitus Not available 12/06 15:48:21 Unspecified Relation Hypertensive disorder Not available 12/06 15:48:34 Medical History Condition Response HIV or AIDS N Coronary Artery Disease N Gout N Kidney Stones N Hyperthyroidism N Head Trauma/Injury N Hernia N Lung Disease N Blood Clots N COPD N Depression N Hypothyroidism N Pacemaker N Anxiety Disorder N Arthritis N Cancer N Stroke N Leg or Foot Ulcers N Neck Injury N High Cholesterol N Liver Disease N Rheumatoid Arthritis N Fibromyalgia N Headaches N Kidney Disease N Heart Problems N Migraines N Thyroid Problems N Anemia N Multiple Sclerosis N Ulcers N Heart Attack (ND) N Diabetes N Bleeding Disorder N Seizures/Epilepsy N Tuberculosis N Urinary Tract Infection N Back Problems N Diverticulitis N Asthma N Lupus N Peripheral Vascular Disease N Sleep Disorder N GERD/Reflux N Hepatitis N Aneurysm N Heart Disease N Pulmonary Embolism N Hypertension N Osteoporosis N Past Encounters Encounter ID Performer Location Encounter Start Date Encounter Closed Date Diagnosis/Indication Diagnosis SNOMED-CT Code Diagnosis ICD10 Code Diagnosis IMO Codes Diagnosis Note [id number] Jose Alfredo Patricia MD [facility] [address] [facility] ,[address] [place] [address] 01/02/2017 15:09:44 01/07/2017 12:17:12 Knee pain 12816157 M25.561 Health Concerns Section Related Observation LastModified by Organization Detai ls LastModified Time None Recorded Concern Status LastModified by Organization Details LastModified Time None Recorded Advance Directives Directive None Recorded Payers Insurance Date Sequence Insurance Name Policy Number Policy Sierra Covered Member ID Sierra Member ID Guarantor Name 01/07/2017 1 [facility] [id number] Rajiv Wisdomworth [id number] Rajiv Kimball
--- OUTSIDE RECORDS SUMMARY | 2025-05-22 00:21 | XMS_ITS | Clinical Summary ---
Author Organization [facility] Address [address] [place] [address] Care Team Providers Care Vp Software Engineering Name Role Phone Ramu Sharma DO Primary Care Provider [phone] Allergies No known active allergies Medications losartan (COZAAR) 50 mg tablet Take 1 tablet (50 mg total) by mouth daily 02/25/2024 Active multivitamin tabletIndication s:Vitamin Deficiency Prevention Take 1 tablet by mouth Active psyllium (METAMUCIL) 3.4 gram packet Take 1 packet by mouth daily Active Active Problems Problem Noted Date Diagnosed Date Essential hypertension 04/18/2025 Hypertriglyceridemia 04/18/2025 DANII (obstructive sleep apnea) 04/18/2025 Primary osteoarthritis of both knees 03/22/2021 Encounters Date Type Department Care Team Description 04/28/2025 7:58 AM CDT - 04/28/2025 11:59 PM CDT Hospital Encounter [facility] [id number] [place] [address] Ankylosing spondylitis, unspecified site of spine (HCC) Discharge Disposition: Discharge to home or self care 04/18/2025 3:20 PM CDT Office Visit [facility] Medicine Rheumatology [address] [place] [address] Medical Office [address] [place] [address] Zelda Cordero NP Ankylosing spondylitis, unspecified site of spine (HCC) (Primary Dx); Primary osteoarthritis involving multiple joints from Last 3 Months Surgical History Surgery Date Site/Laterality Comments HERNIA REPAIR FLUORO GUIDED ASPIRATION OR INJECTION LARGE JOINT BILATERAL 09/06/2024 Bilateral Medical History Medical History Date Comments Osteoarthritis Hypertension Family History Medical History Relation Name Comments Arthritis Father Family history of arthritis - (Added by TW Conv) Hypertension Father Family history of hypertension - (Added by TW Conv) Kidney disease Father Family histor y of kidney disease - (Added by TW Conv) Neuropathy Father Arthritis Mother Family history of arthritis - (Added by TW Conv) Relation Name Status Comments Father Mother Social History Tobacco Use Types Packs/Day Years Used Date Smoking Tobacco: Never Smokeless Tobacco: Never Sex and Gender Information Value Date Recorded Sex Assigned at Not on file Legal Sex Male 2:14 PM DIRECTOR POWER Gender Identity Male 10/26/2018 9:11 AM CDT Sexual Orientation Not on file Last Filed Vital Signs Vital Sign Reading Time Taken Comments Blood Pressure 153/83 04/18/2025 3:07 PM CDT Pulse 82 04/18/2025 3:07 PM CDT Temperature 36.8 C (98.2 F) 04/18/2025 3:07 PM CDT Respiratory Rate 16 09/06/2024 10:15 AM DIRECTOR POWER Oxygen Saturation 96% 04/18/2025 3:07 PM CDT Inhaled Oxygen Concentration - - Weight 149.7 kg (330 lb) 04/28/2025 8:06 AM CDT Height 185.4 cm (6' 1) 04/28/2025 8:06 AM CDT Body Mass Index 43.54 04/28/2025 8:06 AM CDT Plan of Treatment Health Maintenance Due Date Last Done Comments Colon Cancer Screening-Colonoscopy 1972 Depression Screening 1972 Hepatitis C Screening 1972 Prostate Cancer Screening-PSA 1972 Regular Well Visit/Exam 18-64 1990 Zoster Vaccine (1 of 2) 2022 Influenza Vaccine (#1) 2025 04/16/2022, 2018 DTaP/Tdap/Td Vaccine (3 - Td or Tdap) 03/08/2033 03/08/2023, 04/16/2022 Pneumococcal vaccine <65 Aged Out 2010 No longer eligible based on patient's age to complete this topic Hepatitis B Screening Completed 03/06/2020 , 08/18/2019, 01/30/1997, Additional history exists Procedures Procedure Name Priority Date/Time Associated Diagnosis Comments MRI HIP LEFT W WO CONTRAST Schedule Routine, Read Routine (OP Routine) 04/28/2025 9:08 AM CDT Ankylosing spondylitis, unspecified site of spine (HCC) from Last 3 Months Results * MRI Hip Left W WO Contrast (04/28/2025 9:08 AM CDT) Anatomical Region Laterality Modality Lower Extremities Left Magnetic Reson ance 04/28/2025 11:5 1 AM CDT Impressions 04/28/2025 12:38 PM CDT 1. Moderate chondrosis of the left hip with degenerative tear involving the anterosuperior labrum. 2. No significant synovitis. 3. Small areas of ankylosis in the bilateral sacroiliac joints. Dictated by: John Jaimes M.D. The radiology attending physician has personally reviewed this study, and had reviewed and/or edited this written report and agrees with it. Electronically signed by: Roel West MD Narrative 04/28/2025 12:38 PM CDT EXAMINATION: 1. MRI left hip without and with contrast HISTORY: 54-year-old with polyarthralgia. TECHNIQUE: Multiplanar multisequence MR examination of the pelvis and left hip was performed with a multi-coil ray. Images were obtained prior to and following the intravenous administration of 20 mL Dotarem. FINDINGS: Comparison is made to radiographs dated 08/26/2024. Moderate to severe chondrosis of the left hip. Focus of subchondral edema along the anterior portion of the femoral head neck junction. Subchondral edema of the anterior superior acetabulum. Anterior superior labral tear is present in the left hip. No significant chondrosis of the right hip. No subchondral edema of the right hip. Bone marrow signal is normal. Lower lumbar degenerative disc disease. There is bilateral mild ankylosis more prominent on the left than the right. No erosions, bone marrow enhancement, or edema in the sacroiliac joint. Pubic symphysis is normal. Hamstring, iliopsoas, and gluteal tendons are normal. Mild bilateral greater trochanter bursitis. Muscle bulk is normal. Sciatic nerve is normal. No acute process in the pelvis. Procedure Note Roel West MD - 04/28/2025 EXAMINATION: 1. MRI left hip without and with contrast HISTORY: 54-year-old with polyarthralgia. TECHNIQUE: Multiplanar multisequence MR examination of the pelvis and left hip was performed with a multi-coil ray. Images were obtained prior to and following the intravenous administration of 20 mL Dotarem. FINDINGS: Comparison is made to radiographs dated 08/26/2024. Moderate to severe chondrosis of the left hip. Focus of subchondral edema along the anterior portion of the femoral head neck junction. Subchondral edema of the anterior superior acetabulum. Anterior superior labral tear is present in the left hip. No significant chondrosis of the right hip. No subchondral edema of the right hip. Bone marrow signal is normal. Lower lumbar degenerative disc disease. There is bilateral mild ankylosis more prominent on the left than the right. No erosions, bone marrow enhancement, or edema in the sacroiliac joint. Pubic symphysis is normal. Hamstring, iliopsoas, and gluteal tendons are normal. Mild bilateral greater trochanter bursitis. Muscle bulk is normal. Sciatic nerve is normal. No acute process in the pelvis. IMPRESSION: 1. Moderate chondrosis of the left hip with degenerative tear involving the anterosuperior labrum. 2. No significant synovitis. 3. Small areas of ankylosis in the bilateral sacroiliac joints. Dictated by: John Jaimes M.D. The radiology attending physician has personally reviewed this study, and had reviewed and/or edited this written report and agrees with it. Electronically signed by: Roel West MD Zelda Cordero NP IMG MRI PROCEDURES Radha l Result from Last 3 Months [place] [address] [facility] [employer] [facility] H[facility]/PPO Address: [address] [address] [place] [address] [facility] [employer] Care Teams Vp Software Engineering Relationship Specialty Start Date End Date Ramu Sharma DO PCP - General Internal Medicine 10/26/18
--- OUTSIDE RECORDS SUMMARY | 2025-05-22 00:24 | XMS_ITS | Clinical Summary ---
Author Organization [facility] Address [address] [facility] [place] [address] Care Team Providers Care Plastic Cutter Name Role Phone Jv Polanco MD Primary Care Provider [phone] Source Comments [facility],non-owned Affiliates and Associated Physician Practices is amultiple site organization consisting of ambulatory clinics and hospital sitesin [place], [place], [place] and [place]. This disclosure is being madepursuant to the Care Everywhere program and may not contain all information available regarding this patient. Last updated 18.[employer] [facility] Allergies No known active allergies Medications * Be aware that medications may not be up to date on this document. Alwaysverify current medications with the patient. albuterol HFA (PROVENTIL;SHOAIB CHASE;PROAIR) 108 (90 BASE) MCG/ACT inhalerIndicatio ns:Acute bronchitis, unspecified organism Inhale 2 puffs by mouth every 4 hours as needed for Shortness of Breath, Wheezing or Cough 1 Inhaler 9 Active benzonatate (TESSALON) 200 MG capsuleIndicatio ns:Acute bronchitis, unspecified organism Take 1 capsule by mouth 3 times daily as needed for Cough 15 capsule 9 Active Active Problems Problem Noted Date Diagnosed Date PPD negative 12/06/2010 Ankylosing spondylitis 12/03/2010 Sacroiliitis 2010 Overview (2010): Partial benefit from NSAIDS assymmetric narrowing of SI joint Back pain 11/08/2010 Chronic pain 11/08/2010 Overview (11/13/2010): 11/13/2010 negative work up for Best diagnosis may be Fibromyalgia and chronic back pain Immunizations Immunization Administration Dates Next Due PNEUMOCOCCAL PPSV23 2010 Family History Medical History Relation Name Comments Hypertension Father Hypertension Mother Diabetes Paternal Grandfather Relation Name Status Comments Father Mother Paternal Grandfather Social History Tobacco Use Types Packs/Day Years Used Date Smoking Tobacco: Never Smokeless Tobacco: Never Tobacco Cessation:Counseling Given: Yes Alcohol Use Standard Drinks/Week Comments No 0 (1 standard drink = 0.6 oz pur e alcohol) Sex and Gender Information Value Date Recorded Sex Assigned at Not on file Legal Sex Male 11:36 AM MEDICAL DOCTOR NUCLEAR MEDICINE Gender Identity Not on file Sexual Orientation Not on file 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 Not on file Not on file Last Filed Vital Signs Vital Sign Reading Time Taken Comments Blood Pressure 138/62 09/03/2018 9:06 AM MEDICAL DOCTOR NUCLEAR MEDICINE Pulse 92 09/03/2018 9:06 AM MEDICAL DOCTOR NUCLEAR MEDICINE Temperature 38.9 C (102 F) 09/03/2018 9:06 AM MEDICAL DOCTOR NUCLEAR MEDICINE Respiratory Rate 16 06/19/2016 12:15 PM MEDICAL DOCTOR NUCLEAR MEDICINE Oxygen Saturation 97% 09/03/2018 9:06 AM MEDICAL DOCTOR NUCLEAR MEDICINE Inhaled Oxygen Concentration - - Weight 122.5 kg (270 lb) 09/03/2018 9:06 AM MEDICAL DOCTOR NUCLEAR MEDICINE Height 185.4 cm (6' 1) 09/03/2018 9:06 AM MEDICAL DOCTOR NUCLEAR MEDICINE Body Mass Index 35.62 09/03/2018 9:06 AM MEDICAL DOCTOR NUCLEAR MEDICINE Plan of Treatment Health Maintenance Due Date Last Done Comments COLOGUARD (AGES 45-75) - COL ON CA SCREENING 1972 COLON MONITORING 1972 COLONOSCOPY - COLON CA SCREENING 1972 CT COLONOGRAPHY - COLON CA SCREENING 1972 Colorectal Cancer Screening 1972 FIT - COLON CA SCREENING 1972 FLEX SIG - COLON CA SCREENING 1972 LIPID TESTING 1972 HIV SCREENING 11/30/1987 HEPATITIS C SCREENING 11/25/1990 DTAP/TDAP/TD VACCINES (1 - Tdap) 11/30/1991 HEPATITIS B VACCINE (1 of 3 - 19+ 3-dose series) 11/30/1991 SCREENING FOR DIABETES 09/03/2018 11/08/2010 PNEUMOCOCCAL VACCINE 50+ (2 of 2 - PCV) 2022 2010 ZOSTER VACCINE (1 of 2) 2022 DEPRESSION SCREENING 07/06/2024 COVID-19 VACCINE (1 - 2024-2 6 season) 2025 INFLUENZA VACCINE (#1) 2025 HIB VACCINE Aged Out No longer eligi ble based on patient's age to complete this topic HPV VACCINE Aged Out No longer eligi ble based on patient's age to complete this topic MENINGOCOCCAL (Group B) VACC INE SHARED DECISION-MAKING Aged Out No longer eligibl e based on patient's age to complete this topic MENINGOCOCCAL GROUPS A/C/Y/W VACCINE Aged Out No longer eligible b ased on patient's age to complete this topic Procedures Procedure Name Priority Date/Time Associated Diagnosis Comments COMPREHENSIVE METABOLIC PANEL Routine 11/08/2010 12:03 PM CDT Adverse reaction to NSAIDs from Last 3 Months or Most Recently Relevant to Health Maintenance Results * COMPREHENSIVE METABOLIC PANEL (11/08/2010 12:03 PM CDT) Glucose 86 65 - 99 mg/dL [facility] BUN 11 6 - 20 mg/dL [facility] Creatinine 1.16 0.76 - 1.27 mg/dL [facility] eGFR by MDRD 80 >59 mL/min/1.7 3 [facility] ACCOUNT BILL eGFR by MDRD 92 >59 mL/min/1.7 3 [facility] Comment: Note: A persistent eGFR <60 mL/min/1.73 m2 (3 months or more) may indicate chronic kidney disease. An eGFR >59 mL/min/1.73 m2 with an elevated urine protein also may indicate chronic kidney disease. Calculated using CKD-EPI formula. BUN/Creatinine Ratio 9 8 - 19 [facility] Sodium 140 135 - 145 mmol/L [facility] Potassium 4.0 3.5 - 5.2 mmol/L [facility]ILL Chloride 102 97 - 108 mmol/L [facility] BILL CO2 25 20 - 32 mmol/L [facility]ILL Calcium 9.4 8.7 - 10.2 mg/dL [facility] ACCOUNT B[facility] Protein Total 7.4 6.0 - 8.5 g/dL [facility]ILL Albumin 4.8 3.5 - 5.5 g/dL [facility]ILL Globulin Total 2.6 1.5 - 4.5 g/dL [facility]OUNT BILL Albumin/Globulin Ratio 1.8 1.1 - 2.5 [facility]ILL Bilirubin Total 0.7 0.0 - 1.2 mg/dL [facility] ACCOUNT BILL Alkaline Phosphatase 87 25 - 150 IU/L [facility] ACCOUNT BILL AST 16 0 - 40 IU/L [facility] ACCOUNT BILL ALT 23 0 - 55 IU/L [facility] ACCOUNT [facility]ILL BLOOD SPECIMEN / Unknown 11/08/2010 12:03 PM CDT 11/08/2010 8:39 PM CDT Narrative Resulting Agency Comment [facility] [address] [facility] [phone] Stu Tolentino MD LAB - CHEMISTRY ORDERABLES Radha robb Result [facility] BILL [address] [place] [address] from Last 3 Months or Most Recently Relevant to Health Maintenance Insurance Care Teams Plastic Cutter Relationship Specialty [place] [address] [facility] [address] [place] [address] PCP - General Internal Medicine 11/08/10
[2025-05-22 09:41] VITALS: BP 141/76; PULSE 65; RESP 18; TEMP 36.8; O2SAT 97
[2025-05-22] MEDS: LACTATED RINGERS 1,000 ML 150 ML IV CONT (09:47)
--- NOTE | 2025-05-22 09:48 | P.PNAN_ITS ---
Anes - Initial Pre Proc Eval Procedure: Operation Date: 05/22/25 10:30 Proposed Procedures p Screening Colonoscopy - Erich Borja MD Date/Time: 05/22/25 09:48 Surgeon: Erich Borja MD Pre Op Diagnosis: Screening Patient Data Age: 54 Gender: M Height: 1.85 m Weight: 147.5 kg Last Vital Signs Temp 36.8 C 05/22/25 09:41 Pulse 65 05/22/25 09:41 Resp 18 05/22/25 09:41 BP 141/76 H 05/22/25 09:41 Pulse Ox 97 05/22/25 09:41 O2 Del Method Room Air 05/22/25 09:41 Allergies Allergy/AdvReac Type Severity Reaction Status Date / Time polymyxin B (From Neosporin AdvReac Mild Rash Verified 05/22/25 09:40 ([id number])) Home Medications ?Medication ?Instructions ?Recorded ?Confirmed ?Type CPAP Equipment #1 ea 11/11/23 03/22/25 Rx losartan 50 mg tablet 50 mg PO DAILY #90 tabs 11/2705/22/25 Rx cholecalciferol (vitamin D3) 1,250 1,250 mcg PO WEEKLY #8 tabs 02/20/25 05/08/25 Rx mcg (50,000 unit) tablet semaglutide (weight loss) 0.25 0.25 mg (0.5 mL) subcut WEEKLY #2 05/01/25 05/08/25 Rx mg/0.5 mL subcutaneous pen mL injector (Wegovy) Patient hx anesthesia problems: none Family hx anesthesia problems: none Results Review: All pre-operative results and documents have been reviewed as part of the pre- operative evaluation. [facility] Past Medical History Medical History Daytime hypersomnia Hypersomnia Screening for metabolic disorder Hyperglycemia Impaired fasting glucose Elevated blood pressure reading Encounter for completion of form with patient Conjunctivitis Essential hypertension History of recurrent ear infection Otitis media Right ankle sprain Chronic eustachian tube dysfunction Chronic seasonal allergic rhinitis Otitis externa, acute eczematoid DANII (obstructive sleep apnea) Hypertension Bone spur of ankle Mild acid reflux Trigeminal neuralgia Joint pain Surgical History Surgical History History of ankle surgery H/O knee surgery Right ACL 2017 H/O elbow surgery Right tennis elbow surgery 08/2015 Family History Family History Grandparent Family history of transient ischemic attacks Diabetes mellitus Father Hypertension Heart disease BPH (benign prostatic hyperplasia) Social History Social History Smoking status: Never smoker Alcohol intake: never Substance use: never Substance use type: does not use Lack of Transportation: No Lack of Food: Never True Current Housing: I Have Housing Concerned About Future Housing: No Difficulty Paying Gas/Electric Bills: No Difficulty Paying for Meds: No Currently Unemployed: No Education: Bachelor's Degree Difficulty w/ Childcare or Family Care: No Living arrangements: with family Spiritual care concerns: No Anes - Eval Final PreProcedure Day of Procedure 05/22/25 09:48 Patient weight: morbidly obese Heart: regular rate and rhythm Lungs: clear to auscultation Airway: Mallampati scale class II Neurological: alert and oriented Last oral intake: >/= 8 hours ASA classification: III Emergent: no Anesthetic plan: proceed Anesthesia type and monitoring: general GIVS and standard monitoring Results Review: All pre-operative results and documents have been reviewed as part of the pre- operative evaluation. Informed Consent: The patient's anesthetic plan and its attendant risks and benefits were discussed with the patient/family/POA. Questions were solicited and answers provided to the satisfaction of the patient/family/POA.
--- NOTE | 2025-05-22 10:28 | PM.HPGS ---
History of Present Illness History of Present Illness Consent: Risks, benefits, and alternatives have been discussed and questions answered. Patient agrees to proceed with procedure. Chief complaint: Screening Narrative: Rajiv Kimball is a 54 year old male here for screening colonoscopy Review of Systems Review of Systems: All systems reviewed & are unremarkable except as noted in HPI and below PMFSH Past Medical History Medical History Daytime hypersomnia Hypersomnia Screening for metabolic disorder Hyperglycemia Impaired fasting glucose Elevated blood pressure reading Encounter for completion of form with patient Conjunctivitis Essential hypertension History of recurrent ear infection Otitis media Right ankle sprain Chronic eustachian tube dysfunction Chronic seasonal allergic rhinitis Otitis externa, acute eczematoid DANII (obstructive sleep apnea) Hypertension Bone spur of ankle Mild acid reflux Trigeminal neuralgia Joint pain Surgical History Surgical History History of ankle surgery H/O knee surgery Right ACL 2018 H/O elbow surgery Right tennis elbow surgery 08/2015 Family History Family History Grandparent Family history of transient ischemic attacks Diabetes mellitus Father Hypertension Heart disease BPH (benign prostatic hyperplasia) Social History Social History Smoking status: Never smoker Alcohol intake: never Substance use: never Substance use type: does not use Lack of Transportation: No Lack of Food: Never True Current Housing: I Have Housing Concerned About Future Housing: No Difficulty Paying Gas/Electric Bills: No Difficulty Paying for Meds: No Currently Unemployed: No Education: Bachelor's Degree Difficulty w/ Childcare or Family Care: No Living arrangements: with family Spiritual care concerns: No Meds Home Medications and Allergies Home Medications ?Medication ?Instructions ?Recorded ?Confirmed ?Type CPAP Equipment #1 ea 11/11/23 03/22/25 Rx losartan 50 mg tablet 50 mg PO DAILY #90 tabs 02/07/25 05/22/25 Rx cholecalciferol (vitamin D3) 1,250 1,250 mcg PO WEEKLY #8 tabs 02/20/25 05/08/25 Rx mcg (50,000 unit) tablet semaglutide (weight loss) 0.25 0.25 mg (0.5 mL) subcut WEEKLY #2 05/01/25 05/08/25 Rx mg/0.5 mL subcutaneous pen mL injector ([employer]) Allergies Allergy/AdvReac Type Severity Reaction Status Date / Time polymyxin B (From Neosporin AdvReac Mild Rash Verified 05/22/25 09:40 ([id number])) Vital Signs Vital Signs - 24 hr 05/22/25 09:41 Temperature 98.2 F Pulse Rate 65 Respiratory Rate 18 Blood Pressure 141/76 H Pulse Oximetry 97 Oxygen Delivery Room Air Exam Const: General: comfortable and no acute distress Nutritional Appearance: obese HENMT: Face/Nose/Sinus: Normal nares present Eyes: General: appearance normal, both eyes and all related structures Resp: Auscultation: clear to auscultation bilaterally Cardio: Rate: regular rate Rhythm: regular rhythm GI: Inspection: non-distended GI Palp: Yes Soft to palpation Skin: General skin exam: normal color Extrem: General: normal to inspection Psych: Mental Status: mental status grossly normal Assessment and Plan Assessment and plan (1) Colon cancer screening: Code(s): Z12.11 - Encounter for screening for malignant neoplasm of colon Status: Acute Assessment and Plan: colonoscopy
[2025-05-22 10:52] VITALS: BP 131/81; PULSE 69; RESP 20; O2SAT 100
[2025-05-22 11:02] VITALS: BP 128/82; PULSE 67; RESP 11; O2SAT 100
[2025-05-22 11:12] VITALS: BP 122/75; PULSE 65; RESP 12; O2SAT 100
== END 2025-05-22 11:22 | disposition home or self-care (01) ==
PROVIDERS: PCP Internal Medicine; Referring Provider Clinical Nurse Specialist; Visit Provider Internal Medicine Gastroenterology
PROC: 0DJD8ZZ Inspection of Lower Intestinal Tract, Via Natural or Artificial Opening Endoscopic (ICD-10-PCS; CPT 45378; principal; 2025-05-22 10:30)
DX: Z12.11 Encounter for screening for malignant neoplasm of colon (principal); K64.8 Other hemorrhoids; E66.01 Morbid (severe) obesity due to excess calories; Z68.41 Body mass index [BMI] 40.0-44.9, adult
CPT/HCPCS: 45378; J2704; J7120